=== PATIENT | male | born 1950 | race Caucasian/White ===

== ENCOUNTER 2019-07-31 20:04 | Inpatient (IN) | payer MEDICARE, SELFPAY ==
[2019-07-31] VITALS (7 sets, daily range): BP systolic 141–158; BP diastolic 78–99; PULSE 64–91; RESP 16–24; TEMP 36.2–36.8; O2SAT 94–100; BMI 35.8
--- NOTE | ~2019-07-31 | XR_ITS ---
XR chest 2V 08/06/2019 08:26 Indication: Shortness of breath. CHF. Procedure: AP and lateral views of the chest Comparison: 07/31/2019 Findings: Cardiomegaly. Small pleural effusions. No focal pneumonia, edema or pneumothorax. No acute osseous abnormality. Impression: 1: Small pleural effusions. 2: Cardiomegaly. Reviewed, dictated and finalized at location A. MENT DESIGN SPECIALIST Impression: 1: Small pleural effusions. 2: Cardiomegaly.
--- NOTE | ~2019-07-31 | US_ITS ---
EXAMINATION: US renal BI EXAM DATE: 08/02/2019 08:18 INDICATION: Edema, chronic kidney disease. TECHNIQUE: Multiple grayscale and Doppler images of the kidneys were obtained (by a technologist who performed the scan) and subsequently reviewed. Comparison is made to prior examination from 7. FINDINGS: Significant bilateral renal cortical thinning. Right kidney: There is normal contour and echogenicity. It measures 9.7 x 4.9 x 5.7 centimeters. The re is region of increased echogenicity and shadowing in the lower pole of the right kidney consistent with calcification, nephrolithiasis. There is 1.5 cm cystic region with increased through transmissi on, probably cyst. There is no hydronephrosis. Left kidney: There is normal contour and echogenicity. It measures 9.6 x 5.6 x 6.0 centimeters. The re are no focal renal lesions identified. There is no hydronephrosis. Bladder unremarkable. IMPRESSION: 1. Bilateral renal cortical thinning, atrophy. 2. Right nephrolithiasis. Reviewed, dictated and finalized at location B. PULLER
--- NOTE | ~2019-07-31 | XR_ITS ---
XR chest 2V 07/31/2019 21:08 Indication: Shortness of breath, cough and congestion Procedure: 2 view chest Comparison: 05/19/2017 Findings: Cardiomegaly. Bibasilar airspace disease has improved. Decreased size of small effusions. T here is atherosclerosis of the aorta. Impression: 1: Improving bibasilar airspace disease, compatible with resolving pneumonia. 2: Decreased size of small effusions. Reviewed, dictated and finalized at location A. HING TRADES WORKERS Impression: 1: Improving bibasilar airspace disease, compatible with resolving pneumonia. 2: Decreased size of small effusions.
--- NOTE | 2019-07-31 20:39 | ED.GENADULT ---
HPI - General Adult General Chief complaint: Shortness of Breath/Dyspnea Stated complaint: SOB Time Seen by Provider: 07/31/19 20:26 Source: patient and RN notes reviewed Mode of arrival: ambulatory Limitations: no limitations History of Present Illness HPI narrative: Pt is a 69 y/o male who presents to the ED with c/o BLE edema which began 2 weeks ago. Pt states he is on the Lasix medication which he reports he has been taking as prescribed. Pt even tried taking an increased dosage without much relief of his symptoms. He denies an increase in eating greasy foods or changes in his diet. Pt reports his weight was 170 lbs in May 2019, and currently is 215 lbs. He reports his winder fixer is Dr. Das. Pt also reports a productive cough, dysuria, edema to his scrotum, and SOB, but denies chest pain, chest pressure, nausea, vomiting, dizziness, or ABD pain. He states his SOB is worsened when he is laying down. Pt also has been unable to walk around the house without getting increasingly tired. He also states he has been diagnosed multiple times in the past for a UTI, with his most recent diagnosis being 5 months ago. MD complaint: BLE swelling Onset (ago): week(s) (2 weeks ago) Location: genitals (scrotum) and lower extremity (bilaterally) Radiation: non-radiation Relieving factors: none (has tried his medication without relief) Associated symptoms: cough (productive), shortness of breath and other (dysuria) Related Data Home Medications Medication Instructions Recorded Confirmed Tylenol 650 mg PO Q8H 08/01/19 08/01/19 aspirin [Adult Low Dose Aspirin] 81 mg PO DAILY 08/01/19 08/01/19 finasteride 5 mg PO DAILY 08/01/19 08/01/19 furosemide 40 mg PO BID 08/01/19 08/01/19 glimepiride 1 mg PO DAILY 08/01/19 08/01/19 metoprolol succinate 100 mg PO DAILY 08/01/19 08/01/19 qj-ue-PO-vit [id number] 1 cap PO DAILY 08/01/19 08/01/19 [Daily Multivitamin] potassium chloride 20 meq PO DAILY 08/01/19 08/01/19 saxagliptin [Onglyza] 5 mg PO DAILY 08/01/19 08/01/19 sertraline 50 mg PO DAILY 08/01/19 08/01/19 Allergies Allergy/AdvReac Type Severity Reaction Status Date / Time No Known Allergies Allergy Unverified 05/29/18 16:26 Review of Systems Review of Systems: All systems reviewed & are unremarkable except as noted in HPI and below Cardiovascular: Cardiovascular: Denies chest pain (chest pressure), Reports leg edema (BLE) and Reports other (edema to scrotum) Respiratory: Respiratory: Reports cough (productive) and Reports dyspnea Gastrointestinal: Gastrointestinal: Denies abdominal pain, Denies nausea and Denies vomiting Genitourinary: Genitourinary: Reports dysuria Neurologic: Denies dizziness PMFSH Past Medical History Medical History (Updated 08/01/19 @ 06:31 by Rosalio Mondragon MD) Asthma Cataract CHF (congestive heart failure) Diabetes Hypercholesterolemia Hypertension Kidney stone UTI (urinary tract infection) Family History Family History (Updated 08/01/19 @ 00:09 by Ingris San RN) Father Diabetes mellitus Social History Social History (Updated 07/31/19 @ 20:43 by Magda Douglas) Smoking status: Never smoker Second hand tobacco smoke exposure: No Alcohol intake: never Substance use: never Gender identity (if verbalized by the patient): Male Spiritual care concerns: No Agree to blood products: Yes Exam Narrative: Exam Narrative: GENERAL: Well-appearing, well-nourished, and in no acute distress. HEAD: Normocephalic, atraumatic. ENT: Mucous membranes moist. NECK: Supple. CHEST: Clear to auscultation. No respiratory distress. HEART: Regular rate and rhythm. Normal peripheral pulses. ABDOMEN: Soft, nontender, nondistended. EXTREMITIES: Normal range of motion. 4+ edema. SKIN: Warm, dry, no rash. NEURO: Alert and oriented x3. PSYCH: Normal mood and affect. Course Consultations Consultation #1: Discussed case with hospitalist, Dr. Hsu. Agreed pt for admission. Eduardo
--- NOTE | 2019-07-31 20:57 | ECG_ITS ---
Measurements Intervals [place] Rate: 61 P: 69 [place]: 212 QRS: -35 QRSD: 82 T: 99 QT: 379 QTc: 384 Interpretive Statements SINUS RHYTHM ATRIAL AND VENTRICULAR PREMATURE COMPLEXES ANTEROSEPTAL INFARCT, AGE INDETERMINATE INFERIOR INFARCT, AGE INDETERMINATE BORDERLINE ST-T WAVE ABNORMALITY- LATERAL LEADS ABNORMAL ECG Electronically Signed On 08-01-2019 6:52:20 [employer]ID [employer]ASS R[employer] DOWEL MACHINE OPERATOR by Kennedy Singh D.O.
[2019-07-31 21:41] LABS: Basophils Absolute Auto 0.1 K/mm3 (0.0-0.1); Basophils Percent Auto 0.8 % (0.2-1.2); Eosinophils Absolute Auto 0.7 K/mm3 (0-0.3); Eosinophils Percent Auto 6.1 % (0-4.4); Hematocrit 36.5 % (42.0-52.0); Hemoglobin 11.1 g/dL (14.0-18.0); Immature Granulocyte Absolute 0.06 K/mm3 (0.00-0.031); Immature Granulocyte Percent A 0.6 % (0-0.5); Lymphocytes Absolute Auto 0.57 K/mm3 (0.9-3.2); Lymphocytes Percent Auto 5.3 % (18.3-44.2); Mean Corpuscular HGB Conc 30.4 g/dl (32-36); Mean Corpuscular Volume 88.8 fl (80-100); Mean Platelet Volume 10.5 fl (7.4-10.4); Monocytes Absolute Auto 0.8 K/mm3 (0.1-0.6); Monocytes Percent Auto 7.5 % (2.6-8.5); Neutrophils Absolute Auto 8.6 K/mm3 (1.3-6.7); Neutrophils Percent Auto 79.7 % (45.5-73.1); Platelet Count Result 241 k/mm3 (150-375); Red Blood Count 4.11 M/mm3 (4.6-6.20); Red Cell Distribution Width 19.7 % (11.5-14.5); White Blood Count 10.8 K/mm3 (4.5-10.0)
[2019-07-31 21:51] LABS: INR 1.2; Prothrombin Time 14.8 Seconds (11.1-14.7)
[2019-07-31 21:52] LABS: Partial Thromboplastin Time 36.2 SECONDS (22.3-36.8)
[2019-07-31 21:53] LABS: Blood Urea Nitrogen 50 mg/dL (9-20); Calcium 9.1 mg/dL (8.4-10.2); Carbon Dioxide 21 mmol/L (22-30); Chloride 109 mmol/L (98-107); Estimated Glomerular Filt Rate 35; Glucose 131 mg/dL (75-110); Sodium 141 mmol/L (137-145)
[2019-07-31 22:12] LABS: Troponin I 0.075 ng/mL (0.000-0.034)
[2019-07-31 22:14] LABS: NT Pro B Type Natriuretic Pept > 35000 PG/ML (5-100)
--- NOTE | 2019-07-31 22:24 | PC.NURSE ---
@ 1004 Librado from lab called and stated he had a critical troponin on this pt. This RN informed this pts nurse, Abdirizak.
[2019-07-31] MEDS: FUROSEMIDE INJ 100 MG/10 ML VIAL 80 MG IV PUSH (22:38)
[2019-07-31 23:57] LABS: Add Urine Microscopic? YES; Appearance Urine Cloudy (Clear); Bilirubin Urine Negative (Negative); Blood Urine 1+ (Negative); Color Urine Yellow (Yellow); Glucose Urine UA Negative (Negative); Ketones Urine Negative (Negative); Leukocyte Esterase Ur 2+ LEU/UL (Negative); Mucus Urine Rare /lpf; Nitrate Urine Negative (Negative); Protein Urine 3+ mg/dL (Negative); Specific Grav Ur 1.013 (1.001-1.035); Squamous Epithelial Cell Urine Occasional /hpf (Few); Urobilinogen Urine Negative mg/dL (<2.0); WBC Urine >75 /hpf
[2019-08-01] VITALS (8 sets, daily range): BP systolic 144–165; BP diastolic 79–99; PULSE 62–90; RESP 18–20; TEMP 36.1–36.9; O2SAT 95–100; BMI 35.8
--- NOTE | 2019-08-01 | ECHO_ITS ---
Patient Info Name: Natan Drew Age: 69 years : 1950 Gender: Male Ht: 64 in Wt: 209 lbs BSA: 2.11 m2 HR: 85 bpm BP: 165 / 99 mmHg Heart Rhythm: Sinus Rhythm Technical Quality: Good Exam Date: 08/01/2019 11:45 AM Exam Location: [facility] Pulmonary Patient Status: Inpatient Admit Date: 07/31/2019 Staff Ordering Physician: Priyanka Hsu DO Waterproofer: Simon Sweet RDCS Attending Provider: Priyanka Hus DO Referring Physician: Aracelis CHAND; Exam Type: CA echo doppler color flow Study Info Indications I50.22 - Chronic systolic (congestive) heart failure R60.9 - Edema, unspecified Complete two-dimensional, color flow and Doppler transthoracic echocardiogram is performed. Strain analysis performed. History/Risk Factors CHF w/ worsening edema; BNP >35k, HTN, SOB. Summary 1. The left ventricle is moderately enlarged with mild eccentric left ventricular hypertrophy. There is severe global left ventricular dysfunction present with no focal wall motion abnormalities. The calculated ejection fraction is 27% and visually it is 20-25%. The global longitudinal strain pattern is-7%, severely reduced, again showing severe left ventricular dysfunction. Diastolic dysfunction, grade 2, is present. 2. Right ventricular chamber dimension is moderately enlarged with moderate dysfunction. 3. There is moderate mitral valve regurgitation. PISA was 0.5 cm. 4. Dilated inferior vena cava with <50% collapse upon inspiration consistent with significantly elevated right atrial pressure, 15 mmHg. 5. Normal sinus rhythm with PVCs. 6. Left atrial chamber dimension is severely enlarged. 7. There is mild aortic valve regurgitation. 8. There is moderate to severe tricuspid valve regurgitation. 9. There is trivial pericardial effusion. 10. Severe pulmonary hypertension, estimated pulmonary arterial systolic pressure is 76 mmHg. 11. Normal sinus rhythm. Left Ventricle The left ventricle is moderately enlarged with. The left ventricle is moderately enlarged with mild eccentric left ventricular hypertrophy. There is severe global left ventricular dysfunction present with no focal wall motion abnormalities. The calculated ejection fraction is 27% and visually it is 20-25%. The global longitudinal strain pattern is-7%, severely reduced, again showing severe left ventricular dysfunction. Diastolic dysfunction, grade 2, is present. Left ventricular chamber dimension is moderately enlarged. Left ventricular systolic function is severely reduced, estimated at 20-25%. There is mildly increased left ventricular wall thickness. Left ventricular septal wall motion is normal. The left ventricular diastolic function is grade I diastolic dysfunction. Global longitudinal strain is severely elevated at 7 %. Right Ventricle Right ventricular chamber dimension is moderately enlarged with moderate dysfunction. Right ventricular systolic function is reduced. Left Atria Left atrial chamber dimension is severely enlarged. Right Atria Right atrial chamber dimension is normal. Aortic Valve The aortic valve is trileaflet. There is mild aortic valve sclerosis. There is no aortic valve stenosis. There is mild aortic valve regurgitation. Pulmonic Valve The pulmonic valve is normal. There is no pulmonic valve stenosis. There is no pulmonic regurgitation. Mitral Valve There is moderate mitral valve regurgitation. PISA was 0.5 cm. The mitral valve has normal leaflets. There is no mitral valve priscilla
--- NOTE | 2019-08-01 00:12 | ADMGEN ---
This patient, Natan Drew, was admitted to IMU Room 207-01. Patient/family oriented to hospital policies and general routines including ID bracelet, bed and alarms, visiting hours, pain management, procedures, bathroom and other care routines, personal items, smoking policy, room service/diet, and visiting hours. Valuables list has been completed. Information on how to activate the Rapid Response Team has been discussed. Patient/Family are encouraged to report perceived risks to care and to ask questions if they do not understand what they are told or what they should do.
[2019-08-01 01:34] LABS: Troponin I 0.076 ng/mL (0.000-0.034)
[2019-08-01] MEDS: LIDOCAINE HCL 2% GEL UROJET 10 ML PKG MUCOUS MEM (02:55)
[2019-08-01 03:35] LABS: Blood Urea Nitrogen 48 mg/dL (9-20); Calcium 9.3 mg/dL (8.4-10.2); Carbon Dioxide 21 mmol/L (22-30); Chloride 109 mmol/L (98-107); Estimated CRCL calculation 34 ml/min; Estimated Glomerular Filt Rate 35; Glucose 117 mg/dL (75-110); Sodium 142 mmol/L (137-145)
[2019-08-01 04:00] LABS: Troponin I 0.079 ng/mL (0.000-0.034)
[2019-08-01] MEDS: ASPIRIN 81 MG ENTERIC TABLET PO (10:17)
[2019-08-01] MEDS: METOPROLOL SUCCINATE EXT REL 100 MG TABCR PO (10:22)
[2019-08-01] MEDS: SERTRALINE HCL 50 MG TABLET PO (10:22)
[2019-08-01] MEDS: POTASSIUM CHLORIDE 20 MEQ TABLET.ER PO (10:22)
[2019-08-01] MEDS: FINASTERIDE 5 MG TABLET PO (10:23)
[2019-08-01] MEDS: FUROSEMIDE INJ 100 MG/10 ML VIAL 80 MG IV PUSH ×2 (10:23→21:25)
[2019-08-01] MEDS: ENOXAPARIN 40 MG/0.4 ML SYRINGE SUB-Q (13:22)
--- NOTE | 2019-08-01 14:22 | HP_ITS ---
DATE OF SERVICE: 08/01/2019 TIME: 0600. CHIEF COMPLAINT: Generalized weakness and swelling. HISTORY OF PRESENT ILLNESS: The patient is a 69-year-old male with a past medical history of severe systolic dysfunction with EF of 25%, type 2 diabetes mellitus, prior ureteral strictures with uroplasty and chronic kidney disease, stage 3, who presented to the ER with generalized weakness and dyspnea on exertion. The patient reports that he has been having more dyspnea over the last 2 weeks. However, he has been having more swelling over the last month or so. His dyspnea is worse when he is trying to lay down, but it more depends on the effort it takes him to get into bed and not so much his positioning in bed. He has noticed progressive lower extremity swelling and believes that his weight was around 170 pounds a couple of months ago and he is currently up to 208 pounds. He reports that he usually has chronic lower extremity swelling, but now has swelling in his upper arms, chest and body wall as well as abdomen. He has been taking his Lasix 40 mg b.i.d., but given how much he was swelling, he actually took a dose of 80 mg of Lasix prior to coming to the ER with no improvement in his symptoms. He has also been having increased urinary urgency and feeling as if he has to have a bowel movement every 20 or 30 minutes. He states that he has to urinate every 20 or 30 minutes when he is at home, and this has been like this for a prolonged amount of time, probably more than several months. He has noticed that since he has started having increased swelling in his body, he has been having loose stools. They are nonbloody and brown in color. When he arrived to the intermediate floor, he was complaining that he had to get up and go to the bathroom because he felt like he had to have a bowel movement. Since the patient was only dribbling urine despite having received 80 mg of IV Lasix, a Castellon catheter was inserted given his history of urinary obstruction. The patient's body habitus would have made it almost impossible to do a bladder scan. Subsequently, the patient had 350 out of his bladder. After placement of the Castellon, though the patient's sensation of urge to have a bowel movement and urinary urgency had resolved. He denies any dysuria or hematuria. He reports normal appetite, but does not think he has been eating enough food to gain the weight that he has. He denies any chest pain, pressure, or palpitations. He has not had any nausea or vomiting. The patient was diagnosed with a urinary tract infection in April and received antibiotics at that time. The patient reports that he snores quite significantly, but has never had a sleep study. He reports he wakes up feeling refreshed. The patient has decreased mobility and reports that his hip gives out on him. 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 He has been evaluated for hip replacement surgery at [facility]. He reports that any time he gets close to the top of the list for the surgeon who is going to do his surgery, he ends up with a skin ulceration and they cancel his surgery until his skin wounds heal. REVIEW OF SYSTEMS: Except as documented, all systems were reviewed and are negative. PAST MEDICAL HISTORY: 1. Severe systolic dysfunction with ejection fraction of 25% on echocardiogram from May 2017. The patient is followed by Dr. Das as an outpatient. 2. Chronic kidney disease stage 3 with creatinine at baseline. 3. History of kidney stones. 4. Urinary retention with history of ureteral strictures, uroplasty, and subsequent urinary fistula managed by Dr. Melo in the past. 5. Type 2 diabetes mellitus, on oral hypoglycemic agents. 6. Depression. 7. Hypercholesterolemia. 8. Tonsillectomy and adenoidectomy. SOCIAL HISTOR
--- NOTE | 2019-08-01 15:33 | PM.IMPN ---
Progress Note: A&P Assessment and Plan (1) Congestive heart failure: Qualifiers: Heart failure chronicity: acute on chronic Heart failure type: unspecified Qualified Code(s): I50.9 - Heart failure, unspecified Code(s): I50.9 - Heart failure, unspecified Status: Acute Assessment and Plan: Probable acute on chronic systolic heart failure repeat echo pending. Not on Marbin inhibitors due to chronic renal failure. Blood pressure is adequate so will add low-dose hydralazine with nitrate and continue IV furosemide (2) Chronic renal failure, stage 3 (moderate): Code(s): N18.3 - Chronic kidney disease, stage 3 (moderate) Status: Acute Assessment and Plan: Creatinine appears close to baseline continue to monitor with IV Lasix stable at 1.9 (3) Diabetes: Code(s): E11.9 - Type 2 diabetes mellitus without complications Status: Acute Assessment and Plan: Only on low-dose glimepiride which will hold and monitor and use sliding scale if needed (4) Hypertension: Code(s): I10 - Essential (primary) hypertension Status: Acute Assessment and Plan: Pressure adequate actually toward the higher side so will add the hydralazine and nitrate to the beta-seven (5) DVT prophylaxis: Code(s): Z29.9 - Encounter for prophylactic measures, unspecified Status: Acute Assessment and Plan: Lovenox Subjective Date/time seen: 08/01/19 15:33 Interval history: Date of visit 07/31/2019. 69-year-old white male with known systolic heart failure admitted with increasing edema and some shortness of breath. Admits to taking his medicine regularly and have added increased his diuretic some without relief. Has had some orthopnea but no chest pain Exam Narrative: Exam Narrative: Blood pressure 160/96 pulse is 66 afebrile Pupil equal reactive to light sclera anicteric Lungs some very faint end expiratory wheeze very faint crackle left posterior base CV faint systolic murmur lower left sternal border Abdomen is soft nontender Extremities without edema distal pulses are 1+ Neuro alert no focal deficits Objective Data Vital Signs Vital Signs: Vital Signs - 24 hr 07/31/19 20:18 07/31/19 21:59 07/31/19 22:32 Temperature 36.4 C L 36.8 C Pulse Rate 79 91 Respiratory Rate 22 H 24 H Blood Pressure 147/99 H 149/84 H Pulse Oximetry 97 100 94 07/31/19 23:00 07/31/19 23:40 07/31/19 23:41 Temperature 36.8 C 36.8 C Pulse Rate 82 64 84 Respiratory Rate 22 H 16 22 H Blood Pressure 158/98 H 141/78 H 141/78 H Pulse Oximetry 97 100 100 07/31/19 23:55 08/01/19 02:00 08/01/19 04:00 Temperature 36.2 C L 36.1 C L Pulse Rate 82 82 83 Respiratory Rate 20 20 Blood Pressure 151/95 H 165/92 H Pulse Oximetry 99 98 08/01/19 05:57 08/01/19 08:00 08/01/19 10:22 Temperature 36.6 C Pulse Rate 62 86 84 Respiratory Rate 20 Blood Pressure 165/99 H Pulse Oximetry 97 08/01/19 12:00 Temperature 36.8 C Pulse Rate 90 Respiratory Rate 18 Blood Pressure 152/88 H Pulse Oximetry 96 Intake/Output Intake/Output: Intake & Output 07/29/19 07/30/19 07/31/19 08/01/19 23:59 23:59 23:59 23:59 Intake Total 100 Balance 100 Meds/Results Medications: Active Medications Generic Name Dose Route Start Last Admin Trade Name Freq PRN Reason Stop Dose Admin Acetaminophen 650 mg 07/31/19 23:13 Tylenol Tablet PO Q4H PRN Mild Pain (1-3) or Fever Hydrocodone Bitart/Acetaminophen 1 tab 07/31/19 23:13 [place] 5-325 Mg PO Q4H PRN Pain Rated 4-6 Aspirin 81 mg 08/01/19 09:00 08/01/19 10:17 Aspirin Ec PO 81 mg DAILY ANNITA Administration Enoxaparin Sodium 40 mg 08/01/19 09:00 08/01/19 13:22 Lovenox SUB-Q 40 mg DAILY ANNITA Administration Finasteride 5 mg 08/01/19 09:00 08/01/19 10:23 Proscar PO 5 mg DAILY ANNITA Administration Furosemide 80 mg 08/01/19 09:00 08/01/19 10:23 Lasix Inj
[2019-08-01] MEDS: hydrALAZINE 12.5 MG TABLET PO ×2 (17:24→21:24)
--- NOTE | 2019-08-01 17:56 | PC.NURSE ---
Patient received from at 1730.
[2019-08-01 23:43] LABS: Creatinine Urine 62.8 mg/dL
[2019-08-02 00:04] LABS: Total Protein Urine Random 343 mg/dL
[2019-08-02 06:00] VITALS: BP 150/66; PULSE 41; RESP 16; TEMP 36.6; O2SAT 97
[2019-08-02 06:31] LABS: Alanine Aminotransferase 15 U/L (4-50); Albumin Level 2.9 g/dL (3.5-5.1); Alkaline Phosphatase 106 U/L (38-126); Aspartate Amino Transferase 27 U/L (17-59); Bilirubin,Total 0.8 mg/dL (0.2-1.3); Blood Urea Nitrogen 46 mg/dL (9-20); Carbon Dioxide 20 mmol/L (22-30); Chloride 107 mmol/L (98-107); Estimated CRCL calculation 32 ml/min; Estimated Glomerular Filt Rate 33; Glucose 114 mg/dL (75-110); Magnesium 2.1 mg/dL (1.6-2.3); Phosphorus 3.9 mg/dL (2.5-4.5); Potassium 4.5 mmol/L (3.4-5.0); Sodium 138 mmol/L (137-145)
[2019-08-02 08:00] VITALS: PULSE 41; RESP 16; O2SAT 97
[2019-08-02] MEDS: ASPIRIN 81 MG ENTERIC TABLET PO (08:35)
[2019-08-02] MEDS: ENOXAPARIN 40 MG/0.4 ML SYRINGE SUB-Q (08:35)
[2019-08-02] MEDS: FINASTERIDE 5 MG TABLET PO (08:36)
[2019-08-02] MEDS: FUROSEMIDE INJ 100 MG/10 ML VIAL 80 MG IV PUSH ×2 (08:36→20:31)
[2019-08-02] MEDS: hydrALAZINE 12.5 MG TABLET PO ×4 (08:37→20:29)
[2019-08-02] MEDS: METOPROLOL SUCCINATE EXT REL 100 MG TABCR PO (08:37)
[2019-08-02] MEDS: ISOSORBIDE MONONITRATE 15 MG TAB.ER.24H PO (08:37)
[2019-08-02] MEDS: SERTRALINE HCL 50 MG TABLET PO (08:38)
[2019-08-02] MEDS: POTASSIUM CHLORIDE 20 MEQ TABLET.ER PO (08:38)
--- NOTE | 2019-08-02 11:50 | WPDCN ---
Assessment and Plan Assessment and plan (1) Acute on chronic systolic heart failure: Code(s): I50.23 - Acute on chronic systolic (congestive) heart failure Status: Acute Assessment and Plan: Patient presents with slowly accumulating 50-60 lb weight gain and acute on chronic systolic heart failure. He states he has been compliant with his medications; there is room to move with his diuretics. Also with his Education. In the past I did not increase his metoprolol because of bradycardia in did not add an ARB, Entresto or spironolactone because of is chronic kidney disease. Nitrates and hydralazine is a good option. Plan: Hydralazine and Isordil have been started Continue IV diuretics If renal fxn can not tolerate diuresis, then transfer to IMU for dobutamine to hopefully improve cardiac output and prevent worsening renal insufficiency Daily BMP Dietitian for low-salt diet and Education regarding cardiomyopathy and CHF Spironolactone if Dr. Mcconnell feels his renal function would tolerate this. Will re-approache the thought of ICD implant at a later date. (2) Cardiomyopathy: Code(s): I42.9 - Cardiomyopathy, unspecified Status: Acute Assessment and Plan: EF about 25% since 20 17 (3) Chronic renal failure, stage 3 (moderate): Code(s): N18.3 - Chronic kidney disease, stage 3 (moderate) Status: Acute Assessment and Plan: Relatively stable (4) Hypertension: Code(s): I10 - Essential (primary) hypertension Status: Acute Assessment and Plan: Blood pressure still a bit high (5) PVCs (premature ventricular contractions): Code(s): I49.3 - Ventricular premature depolarization Status: Acute Assessment and Plan: Asymptomatic PVCs (6) Knowledge deficit: Status: Acute Assessment and Plan: Reviewed CHF, cardiomyopathy, and courage the patient to call sooner if there is weight gain or swelling. (7) Pulmonary hypertension: Code(s): I27.20 - Pulmonary hypertension, unspecified Status: Acute Assessment and Plan: Patient has severe pulmonary hypertension and would not be surprised if he also has sleep apnea. Will evaluate with an apnea link. HPI Data of Consult Date/Time: 08/02/19 11:50 Requesting Physician: Priyanka Hsu DO Primary Care Provider: Roberto Carlos Hines MD Consult Narrative Narrative: Date of service: 08/02/2019 Natan Drew is a 69 year old male, referred by Dr. Hsu for advice and opinion regarding his acute CHF and cardiomyopathy, in consultation. Mr. Rizzo has a history of cardiomyopathy and CHF as well as frequent PVCs. I see him in the office with the last office visit being April 2019. Since then the patient has had progressive SOB, and orthopnea with progressive swelling and gained 60 lb. He did not call us to report this change. He also has become progressively more short of breath. He feels that his home Lasix has not been working very well with decreased urine output. He states he has been compliant with his medications, follows a no added salt diet (but likes to obtain take out and has frozen meals at times). The patient was initially diagnosed with heart failure in 2016, at which time he was admitted with CHF, and EF of 25%. He was found of chronic kidney disease. He had a heart catheterization 10 15 years ago but none recently (because of his chronic kidney disease). A Lexiscan was negative. We had discussed his cardiomyopathy and treatment several times and on his last 2 office visits in October and April 2019 we discussed primary prevention of sudden cardiac with implantation of a defibrillator. The patient has not gotten back to us on that. Had her last office visit in April his weight was 177 lb and he had mild to moderate lower extremity edema. He cancelled his next follow-up visit. History of hypertension, patient reports diabetes as well. Cardiac testi
--- NOTE | 2019-08-02 13:25 | PM.IMPN ---
Progress Note: A&P Assessment and Plan (1) Congestive heart failure: Qualifiers: Heart failure chronicity: acute on chronic Heart failure type: unspecified Qualified Code(s): I50.9 - Heart failure, unspecified Code(s): I50.9 - Heart failure, unspecified Status: Acute Assessment and Plan: acute on chronic systolic heart failure repeat echo EF 25% with pul HTN and diastolic dysfunction.. Not on Marbin inhibitors due to chronic renal failure. Blood pressure is adequate so added low-dose hydralazine with nitrate and continue IV furosemide per cardiology probable dobutamine if does not start diuresing more. Could add metolazone too (2) Chronic renal failure, stage 3 (moderate): Code(s): N18.3 - Chronic kidney disease, stage 3 (moderate) Status: Acute Assessment and Plan: Creatinine appears close to baseline continue to monitor with IV Lasix stable at 2.0 today (3) Diabetes: Code(s): E11.9 - Type 2 diabetes mellitus without complications Status: Acute Assessment and Plan: Only on low-dose glimepiride which will hold and monitor and use sliding scale if needed BS good (4) Hypertension: Code(s): I10 - Essential (primary) hypertension Status: Acute Assessment and Plan: Pressure adequate and should be able to titrate further hydralazine and nitrate to the beta-seven (5) DVT prophylaxis: Code(s): Z29.9 - Encounter for prophylactic measures, unspecified Status: Acute Assessment and Plan: Lovenox Subjective Date/time seen: 08/02/19 13:25 Interval history: Date of visit 08/02/2019. 69-year-old white male with known systolic heart failure admitted with increasing edema and some shortness of breath. Admits to taking his medicine regularly and have added increased his diuretic some without relief. Has had some orthopnea but no chest pain, has diuresed some since admission and complains of head congestion now Exam Narrative: Exam Narrative: Blood pressure 150/66 pulse is 56 afebrile Pupil equal reactive to light sclera anicteric Lungs some very faint crackle left posterior base CV faint systolic murmur lower left sternal border Abdomen is soft nontender Extremities 2+ edema distal pulses are 1+ Neuro alert no focal deficits Objective Data Vital Signs Vital Signs: Vital Signs - 24 hr 08/01/19 17:35 08/01/19 22:00 08/02/19 06:00 Temperature 36.9 C 36.6 C 36.6 C Pulse Rate 83 80 41 L Respiratory Rate 18 18 16 Blood Pressure 161/85 H 144/79 H 150/66 H Pulse Oximetry 100 95 97 08/02/19 08:00 Temperature Pulse Rate 41 L Respiratory Rate 16 Blood Pressure Pulse Oximetry 97 Intake/Output Intake/Output: Intake & Output 07/30/19 07/31/19 08/01/19 08/02/19 23:59 23:59 23:59 23:59 Intake Total 100 250 Output Total 550 1050 Balance -450 -800 Meds/Results Medications: Active Medications Generic Name Dose Route Start Last Admin Trade Name Freq PRN Reason Stop Dose Admin Acetaminophen 650 mg 07/31/19 23:13 Tylenol Tablet PO Q4H PRN Mild Pain (1-3) or Fever Hydrocodone Bitart/Acetaminophen 1 tab 07/31/19 23:13 [place] 5-325 Mg PO Q4H PRN Pain Rated 4-6 Aspirin 81 mg 08/01/19 09:00 08/02/19 08:35 Aspirin Ec PO 81 mg DAILY ANNITA Administration Enoxaparin Sodium 40 mg 08/01/19 09:00 08/02/19 08:35 Lovenox SUB-Q 40 mg DAILY ANNITA Administration Finasteride 5 mg 08/01/19 09:00 08/02/19 08:36 Proscar PO 5 mg DAILY ANNITA Administration Furosemide 80 mg 08/01/19 09:00 08/02/19 08:36 Lasix Inj IV PUSH 80 mg Q12HR ANNITA Administration Hydralazine HCl 12.5 mg 08/01/19 17:00 08/02/19 08:37 Apresoline Tablet PO 12.5 mg QID ANNITA Administration Isosorbide Mononitrate 15 mg 08/02/19 09:00 08/02/19 08:37 Imdur PO 15 mg QAM ANNITA Administration Metoprolol Succinate 100 mg 08/01/19 09:00 08/02/19 08:37 Toprol Xl PO
[2019-08-02 14:00] VITALS: BP 141/77; PULSE 66; RESP 16; TEMP 37.6; O2SAT 97
--- NOTE | 2019-08-02 16:45 | PCPTNOTE ---
The patient treatment was not able to be completed today. Will plan to continue treatment per plan of care.
--- NOTE | 2019-08-02 17:14 | PM.CNNEP ---
Assessment and Plan Assessment and plan (1) Chronic kidney disease, stage 3: Code(s): N18.3 - Chronic kidney disease, stage 3 (moderate) Status: Acute (2) Nephrotic range proteinuria: Code(s): R80.9 - Proteinuria, unspecified Status: Acute (3) Acute on chronic systolic heart failure: Code(s): I50.23 - Acute on chronic systolic (congestive) heart failure Status: Acute (4) Hypertension: Code(s): I10 - Essential (primary) hypertension Status: Acute Assessment and Plan: . Additional Plan Natan has chronic kidney disease and his kidney function appears to be at baseline by his most recent labs. Unfortunately, his major issue/problem at this time is severe volume overload and anasarca as evidence by his physical exam. His swelling edema is somewhat of a chronic issue at baseline likely secondary to his known cardiomyopathy and I suspect his nephrotic range proteinuria is also a contributing factor to his swelling as well. However, the treatment for both of these conditions it is aggressive diuresis that at that unfortunately, diuretics alone have not achieved a significant response in terms of improving his urine output. Considerations in terms of therapy try to promote further diuretics include IV albumin changed by IV diuretics versus what was brought up by Cardiology in terms of using IV dobutamine to improve his cardiac output and there by promoting further diuresis with the use of IV diuretics. Depending on that trend of his urine output and next 24 hours, I suspect we will probably have to do something more aggressive in terms of what was mentioned above to optimize his volume status in general. If IV dobutamine is instituted, this may actually improve his overall renal function is well along with promoting diuresis. I will continue to follow patient with you while he remains hospitalized and make further recommendations during his hospital course. Thank you for allowing to participate in the care of this patient. History of Present Illness Reason for Consult Consult date: 08/02/19 Reason for consult: chronic renal failure and Other (proteinuria) Chief Complaint Chief complaint: chf exacerbation History of Present Illness Narrative: The patient is a very pleasnt 69-year-old male with an extensive medical history as outlined below who presented to [facility] ER with complaints of generalized weakness, dyspnea on exertion, and worsening edema/swelling. The patient has noted progressive dyspnea over the last 2 weeks associated with more edema/fluid retention. He tells me the his usual weight is around 170 pounds and is now upt 208 pounds. He admits that he has chronic lower extremity swelling but states now he has swelling everywhere - arms, chest, abdomen...etc. He has been taking his diuretics as prescribed and denies any dietary indiscretion. In an attempt to decrease his edema, he attempted to take a higher dose of diuretics but this did not seem to help at all. Workup and evaluation in the emergency room demonstrated the patient to be hemodynamically stable with routine blood tests consistent with his known history of chronic kidney disease. His exam was noteworthy for significant/severe anasarca and overt volume overload. He was started on IV diuretic therapy and subsequently admitted to the hospital for further evaluation and therapy. Renal consultation was requested due to his known history of chronic kidney disease as well as a concern that nephrotic range proteinuria/nephrotic syndrome was playing a role with regard to his volume status. The patient normally follows with Dr. Michael Mcconnell in the office for ongoing management of his chronic kidney disease. Based on his outpatient evaluation, his kidney disease is due to his hypertension, diabetes as well as chronic prerenal azotemia due to his known cardiomyopathy complicated by the need for chronic diuretic
[2019-08-02] MEDS: ACETAMINOPHEN 325 MG TABLET 650 MG PO (18:49)
[2019-08-02 22:00] VITALS: BP 152/77; PULSE 80; RESP 18; TEMP 37.3; O2SAT 95
[2019-08-03] VITALS (13 sets, daily range): BP systolic 129–163; BP diastolic 60–91; PULSE 74–87; RESP 20–24; TEMP 36–37.3; O2SAT 95–97
[2019-08-03 06:14] LABS: Blood Urea Nitrogen 48 mg/dL (9-20); Calcium 8.9 mg/dL (8.4-10.2); Carbon Dioxide 20 mmol/L (22-30); Chloride 108 mmol/L (98-107); Estimated CRCL calculation 31 ml/min; Estimated Glomerular Filt Rate 31; Glucose 125 mg/dL (75-110); Phosphorus 3.8 mg/dL (2.5-4.5); Potassium 4.5 mmol/L (3.4-5.0); Sodium 139 mmol/L (137-145)
[2019-08-03] MEDS: ENOXAPARIN 40 MG/0.4 ML SYRINGE SUB-Q (09:03)
[2019-08-03] MEDS: SERTRALINE HCL 50 MG TABLET PO (09:04)
[2019-08-03] MEDS: POTASSIUM CHLORIDE 20 MEQ TABLET.ER PO (09:04)
[2019-08-03] MEDS: FINASTERIDE 5 MG TABLET PO (09:04)
[2019-08-03] MEDS: ISOSORBIDE MONONITRATE 15 MG TAB.ER.24H PO ×2 (09:04→13:50)
[2019-08-03] MEDS: hydrALAZINE HCL 25 MG TABLET PO ×4 (09:04→22:04)
[2019-08-03] MEDS: ASPIRIN 81 MG ENTERIC TABLET PO (09:04)
[2019-08-03] MEDS: METOPROLOL SUCCINATE EXT REL 100 MG TABCR PO (09:04)
--- NOTE | 2019-08-03 09:41 | PM.PNCARD ---
Progress Note: A&P Assessment and Plan (1) Acute on chronic systolic heart failure: Code(s): I50.23 - Acute on chronic systolic (congestive) heart failure Status: Acute Assessment and Plan: Has anasarca secondary to CHF and, to some degree, nephrotic syndrome Poor response to IV diuretics Discussed with Dr. Aguero. Will transfer to IMU and start dobutamine starting at 2.5 mics. Increase to 5 mics per kilos per hour if insufficient response and no significant arrhythmias.. BP on the high side. Increase hydralazine up to 25 mg QID today and isosorbide up to 30 mg qd and continue to titrate. (2) Cardiomyopathy: Code(s): I42.9 - Cardiomyopathy, unspecified Status: Acute Assessment and Plan: Nonischemic cardiomyopathy, EF 25% (3) Hypertension: Code(s): I10 - Essential (primary) hypertension Status: Acute Assessment and Plan: Running a bit high today (4) Chronic kidney disease, stage 3: Code(s): N18.3 - Chronic kidney disease, stage 3 (moderate) Status: Acute Assessment and Plan: Creatinine up slightly to 2.1. Dr. Tate notes nephrotic range proteinuria. (5) PVCs (premature ventricular contractions): Code(s): I49.3 - Ventricular premature depolarization Status: Acute Assessment and Plan: Cont Tele. Time Spent With Patient Time with patient: 15 - 25 minutes Subjective Date/time seen: 08/03/19 Follow-up for acute on chronic systolic CHF Date of service: 08/03/2019 Patient started on IV Lasix 80 mg b.i.d. with a very unimpressive diuresis. No shortness of breath at rest. Ambulated to bathroom with physical therapy without significant shortness of breath. Still with anasarca. Review of Systems Constitutional: Constitutional: Denies difficulty sleeping ENT: Denies epistaxis Cardiovascular: Cardiovascular: Denies chest pain, Reports pedal edema, Reports leg edema, Denies lightheadedness and Denies palpitations Respiratory: Respiratory: Denies dyspnea, Reports dyspnea on exertion and Denies wheezing Gastrointestinal: Gastrointestinal: Denies abdominal pain and Denies hematemesis Genitourinary: Genitourinary: Denies hematuria Musculoskeletal: Musculoskeletal: Denies back pain Integumentary/Breasts: Skin/Breast: Denies rash Neurologic: Denies confusion Psychiatric: Psychiatric: Denies confusion Exam Narrative: Exam Narrative: Pleasant male lying in bed comfortably, no distress. Still has severe edema of the dependent aspects of his body from his axilla to his feet and also some edema of his arms left greater than right.. Edema of the panniculus. Const: General: comfortable and no acute distress HENMT: Mouth: Yes moist mucous membranes Eyes: EOM: EOMs intact bilaterally Neck: Neck: supple Resp: Effort & Inspection: normal respiratory effort Auscultation: diminished lung sounds (Diminished breath sounds, scattered rales in the bases) Cardio: Rate: regular rate Heart sounds: no murmurs GI: Auscultation: normal bowel sounds (Soft and nontender) Skin: General skin exam: no rashes or lesions noted Neuro: Speech: normal speech Extrem: Right lower extremity: edema (Severe lower extremity edema) Left lower extremity: edema (Severe lower extremity edema) Psych: Mental Status: mental status grossly normal Affect: normal affect Objective Data Vital Signs Vital Signs: Vital Signs - 24 hr 08/02/19 14:00 08/02/19 22:00 08/03/19 05:58 Temperature 37.6 C 37.3 C 37.3 C Pulse Rate 66 80 78 Respiratory Rate 16 18 20 Blood Pressure 141/77 H 152/77 H 153/91 H Pulse Oximetry 97 95 97 08/03/19 09:04 Temperature Pulse Rate 74 Respiratory Rate Blood Pressure Pulse Oximetry Intake/Output Intake/Output: Intake & Output 07/31/19 08/01/19
[2019-08-03] MEDS: FUROSEMIDE INJ 100 MG/10 ML VIAL 80 MG IV PUSH ×2 (10:02→22:08)
--- NOTE | 2019-08-03 10:24 | PCOTNOTE ---
Attempted to see patient this am, however patient getting ready to transfer to IMU. Pt's belongings are packed and ready to be moved.
[2019-08-03] MEDS: DOBUTamine 250 MG/D5W 250 ML 250 MG/250 ML BAG 14.2 MG IV CONT (11:50)
--- NOTE | 2019-08-03 15:51 | PM.IMPN ---
Progress Note: A&P Assessment and Plan (1) Congestive heart failure: Qualifiers: Heart failure chronicity: acute on chronic Heart failure type: unspecified Qualified Code(s): I50.9 - Heart failure, unspecified Code(s): I50.9 - Heart failure, unspecified Status: Acute Assessment and Plan: acute on chronic systolic heart failure repeat echo EF 25% with pul HTN and diastolic dysfunction.. Not on Marbin inhibitors due to chronic renal failure. Blood pressure is adequate so added low-dose hydralazine with nitrate and continue IV furosemide per cardiology will start dobutamine today to try to increase diuresis. Could add metolazone too (2) Chronic renal failure, stage 3 (moderate): Code(s): N18.3 - Chronic kidney disease, stage 3 (moderate) Status: Acute Assessment and Plan: Creatinine appears close to baseline continue to monitor with IV Lasix stable at 2.1 today (3) Diabetes: Code(s): E11.9 - Type 2 diabetes mellitus without complications Status: Acute Assessment and Plan: Only on low-dose glimepiride which will hold and monitor and use sliding scale if needed BS good (4) Hypertension: Code(s): I10 - Essential (primary) hypertension Status: Acute Assessment and Plan: Pressure adequate and will titrate hydralazine to 25mg q6 with nitrate and the beta-seven (5) DVT prophylaxis: Code(s): Z29.9 - Encounter for prophylactic measures, unspecified Status: Acute Assessment and Plan: Lovenox Subjective Date/time seen: 08/03/19 15:51 Interval history: Date of visit 08/03/2019. 69-year-old white male with known systolic heart failure admitted with increasing edema and some shortness of breath. Admits to taking his medicine regularly and have added increased his diuretic some without relief. Has had some orthopnea but no chest pain, has diuresed some since admission but no excessive Exam Narrative: Exam Narrative: Blood pressure 144/90 pulse is 76 afebrile Pupil equal reactive to light sclera anicteric Lungs still some very faint crackle left posterior base CV faint systolic murmur lower left sternal border Abdomen is soft nontender Extremities 2+ edema still, distal pulses are 1+ Neuro alert no focal deficits Objective Data Vital Signs Vital Signs: Vital Signs - 24 hr 08/02/19 22:00 08/03/19 05:58 08/03/19 09:04 Temperature 37.3 C 37.3 C Pulse Rate 80 78 74 Respiratory Rate 18 20 Blood Pressure 152/77 H 153/91 H Pulse Oximetry 95 97 08/03/19 11:08 08/03/19 11:11 08/03/19 12:00 Temperature 36.6 C Pulse Rate 82 79 80 Respiratory Rate 20 Blood Pressure 144/91 H Pulse Oximetry 97 08/03/19 12:30 08/03/19 14:00 Temperature 36.4 C Pulse Rate 82 82 Respiratory Rate 22 H Blood Pressure 163/77 H Pulse Oximetry 97 Intake/Output Intake/Output: Intake & Output 07/31/19 08/01/19 08/02/19 08/03/19 23:59 23:59 23:59 23:59 Intake Total 100 1350 600 Output Total 550 1450 750 Balance -450 -100 -150 Meds/Results Medications: Active Medications Generic Name Dose Route Start Last Admin Trade Name Freq PRN Reason Stop Dose Admin Acetaminophen 650 mg 07/31/19 23:13 08/02/19 18:49 Tylenol Tablet PO 650 mg Q4H PRN Administration Mild Pain (1-3) or Fever Hydrocodone Bitart/Acetaminophen 1 tab 07/31/19 23:13 [place] 5-325 Mg PO Q4H PRN Pain Rated 4-6 Aspirin 81 mg 08/01/19 09:00 08/03/19 09:04 Aspirin Ec PO 81 mg DAILY ANNITA Administration Enoxaparin Sodium 40 mg 08/01/19 09:00 08/03/19 09:03 Lovenox SUB-Q 40 mg DAILY ANNITA Administration Finasteride 5 mg 08/01/19 09:00 08/03/19 09:04 Proscar PO 5 mg DAILY ANNITA Administration Furosemide 80 mg 08/01/19 09:00 08/03/19 10:02 Lasix Inj IV PUSH 80 mg Q12HR ANNITA Administration Hydralazine HCl 25 mg 08/03/19 09:00 08/03/19 13:50 Apresoline Tablet PO 25 mg
--- NOTE | 2019-08-03 17:02 | PM.PNNEP ---
Progress Note: A&P Assessment and Plan (1) Chronic kidney disease, stage 3: Code(s): N18.3 - Chronic kidney disease, stage 3 (moderate) Status: Chronic Assessment and Plan: baseline creatinine by office records runs ~ 2.0 - 2.5mg/dl due to hypertension, diabetes, and a component of cardiorenal syndrome (chronic pre-renal azotemia worsened by need for chronic diuretic therapy) suspect his lower creatinine on admission was a dilutional value given his anasarca (2) Nephrotic range proteinuria: Code(s): R80.9 - Proteinuria, unspecified Status: Chronic Assessment and Plan: long standing issue from review of outpatient records undoubtedly contributing to his volume status as well (3) Anasarca: Code(s): R60.1 - Generalized edema Status: Acute Assessment and Plan: significant deterioration noted likely a manifestation of his cardiomyopathy/decompensated heart failure + nephrotic syndrome follow I/Os, daily weights, and respiratory status with current interventions (4) Acute on chronic systolic heart failure: Code(s): I50.23 - Acute on chronic systolic (congestive) heart failure Status: Acute Assessment and Plan: Cardiology following initiated on dobutamine gtt continue diuretics follow volume status (5) Hypertension: Code(s): I10 - Essential (primary) hypertension Status: Acute Assessment and Plan: running a bit high at this time hydralazine added follow hemodynamics Will continue to follow. Subjective Date/time seen: 08/03/19 17:02 Transferred to IMU for initiation of dobutamine drip given poor response to high dose IV diuretics; still with significant swelling/edema at this time; no acute distress noted. Exam Narrative: Exam Narrative: General: WD/WN male in NAD Heart: normal S1 and S2; no rub Lungs: decreased with bibasilar crackles noted Abdomen: soft, nontender, nondistended, positive bowel sounds Extremities: no cyanosis or clubbing; 3+ edema Skin: warm and dry Objective Data Vital Signs Vital Signs: Vital Signs Temp Pulse Resp BP Pulse Ox 08/03/19 14:00 82 08/03/19 12:30 36.4 C 82 22 H 163/77 H 97 08/03/19 12:00 80 08/03/19 11:11 36.6 C 79 20 144/91 H 97 08/03/19 11:08 82 08/03/19 09:04 74 01/30/20 05:58 37.3 C 78 20 153/91 H 97 08/02/19 22:00 37.3 C 80 18 152/77 H 95 Intake/Output Intake/Output: Intake & Output 07/31/19 08/01/19 08/02/19 08/03/19 23:59 23:59 23:59 23:59 Intake Total 100 1350 600 Output Total 550 1450 750 Balance -450 -100 -150 Meds/Results Medications: Active Medications Generic Name Dose Route Start Last Admin Trade Name Freq PRN Reason Stop Dose Admin Acetaminophen 650 mg 07/31/19 23:13 08/02/19 18:49 Tylenol Tablet PO 650 mg Q4H PRN Administration Mild Pain (1-3) or Fever Hydrocodone Bitart/Acetaminophen 1 tab 07/31/19 23:13 [place] 5-325 Mg PO Q4H PRN Pain Rated 4-6 Aspirin 81 mg 08/01/19 09:00 08/03/19 09:04 Aspirin Ec PO 81 mg DAILY ANNITA Administration Enoxaparin Sodium 40 mg 08/01/19 09:00 08/03/19 09:03 Lovenox SUB-Q 40 mg DAILY ANNITA Administration Finasteride 5 mg 08/01/19 09:00 08/03/19 09:04 Proscar PO 5 mg DAILY ANNITA Administration Furosemide 80 mg 08/01/19 09:00 08/03/19 10:02 Lasix Inj IV PUSH 80 mg Q12HR ANNITA Administration Hydralazine HCl 25 mg 08/03/19 09:00 08/03/19 13:50 Apresoline Tablet PO 25 mg QID ANNITA Administration Dobutamine HCl/Dextrose 250 mg in 250 mls @ 14.175 mls/hr 08/03/19 09:40 08/03/19 11:50 Dobutamine 250 Mg/D5w 250 Ml IV CONT 2.5 mcg/kg/min .[id number] ANNITA 14.2 mls/hr Administration 2.5 MCG/KG/MIN Isosorbide Mononitrate 30 mg 08/04/19 09:00 Imdur PO QAM ANNITA Metoprolol Succinate 100 mg 08/01/19 09:00 08/03/19 09:04 Toprol Xl PO 100 m
[2019-08-03] MEDS: ACETAMINOPHEN 325 MG TABLET 650 MG PO (23:51)
[2019-08-03] MEDS: SALINE 0.65% NAS SOLN 44 ML BTL 2 SPRAY NASAL (23:52)
[2019-08-04] VITALS (18 sets, daily range): BP systolic 136–160; BP diastolic 67–97; PULSE 70–90; RESP 18–24; TEMP 36.1–36.8; O2SAT 95–98
[2019-08-04 04:43] LABS: Basophils Absolute Auto 0.1 K/mm3 (0.0-0.1); Basophils Percent Auto 0.4 % (0.2-1.2); Eosinophils Absolute Auto 0.5 K/mm3 (0-0.3); Eosinophils Percent Auto 4.4 % (0-4.4); Hematocrit 31.2 % (42.0-52.0); Immature Granulocyte Absolute 0.07 K/mm3 (0.00-0.031); Immature Granulocyte Percent A 0.6 % (0-0.5); Lymphocytes Absolute Auto 0.39 K/mm3 (0.9-3.2); Lymphocytes Percent Auto 3.2 % (18.3-44.2); Mean Corpuscular HGB Conc 32.1 g/dl (32-36); Mean Corpuscular Hemoglobin 27.9 pg (26-34); Mean Corpuscular Volume 86.9 fl (80-100); Mean Platelet Volume 10.1 fl (7.4-10.4); Monocytes Absolute Auto 0.8 K/mm3 (0.1-0.6); Monocytes Percent Auto 6.7 % (2.6-8.5); Neutrophils Absolute Auto 10.3 K/mm3 (1.3-6.7); Neutrophils Percent Auto 84.7 % (45.5-73.1); Platelet Count Result 206 k/mm3 (150-375); Red Blood Count 3.59 M/mm3 (4.6-6.20); Red Cell Distribution Width 18.7 % (11.5-14.5); White Blood Count 12.1 K/mm3 (4.5-10.0)
[2019-08-04 05:04] LABS: Albumin Level 2.9 g/dL (3.5-5.1); Blood Urea Nitrogen 51 mg/dL (9-20); Calcium 8.9 mg/dL (8.4-10.2); Carbon Dioxide 22 mmol/L (22-30); Chloride 107 mmol/L (98-107); Estimated CRCL calculation 34 ml/min; Estimated Glomerular Filt Rate 35; Glucose 122 mg/dL (75-110); Phosphorus 3.7 mg/dL (2.5-4.5); Potassium 4.3 mmol/L (3.4-5.0); Sodium 139 mmol/L (137-145)
[2019-08-04] MEDS: DOBUTamine 250 MG/D5W 250 ML 250 MG/250 ML BAG 14.2 MG IV CONT (05:54)
[2019-08-04] MEDS: SALINE 0.65% NAS SOLN 44 ML BTL 2 SPRAY NASAL ×4 (06:12→21:17)
[2019-08-04] MEDS: SERTRALINE HCL 50 MG TABLET PO (08:12)
[2019-08-04] MEDS: ISOSORBIDE MONONITRATE 30 MG TAB.ER.24H PO (08:12)
[2019-08-04] MEDS: ENOXAPARIN 40 MG/0.4 ML SYRINGE SUB-Q (08:12)
[2019-08-04] MEDS: ASPIRIN 81 MG ENTERIC TABLET PO (08:12)
[2019-08-04] MEDS: FINASTERIDE 5 MG TABLET PO (08:13)
[2019-08-04] MEDS: hydrALAZINE HCL 25 MG TABLET PO ×4 (08:13→21:13)
[2019-08-04] MEDS: METOPROLOL SUCCINATE EXT REL 100 MG TABCR PO (08:13)
[2019-08-04] MEDS: FUROSEMIDE INJ 100 MG/10 ML VIAL 80 MG IV PUSH ×2 (08:13→21:12)
[2019-08-04] MEDS: POTASSIUM CHLORIDE 20 MEQ TABLET.ER PO (08:14)
[2019-08-04] MEDS: metOLazone 2.5 MG TABLET PO (12:19)
--- NOTE | 2019-08-04 13:31 | PM.PNNEP ---
Progress Note: A&P Assessment and Plan (1) Chronic kidney disease, stage 3: Code(s): N18.3 - Chronic kidney disease, stage 3 (moderate) Status: Chronic Assessment and Plan: baseline creatinine (from review of office records) runs ~ 2.0 - 2.5mg/dl due to hypertension, diabetes, and a component of cardiorenal syndrome (chronic pre-renal azotemia worsened by need for chronic diuretic therapy) suspect his lower creatinine on admission was a dilutional value given his anasarca (2) Nephrotic range proteinuria: Code(s): R80.9 - Proteinuria, unspecified Status: Chronic Assessment and Plan: long standing issue from review of outpatient records (has fluctuated ~ 5 - 7 grams) undoubtedly contributing to his volume status as well (3) Anasarca: Code(s): R60.1 - Generalized edema Status: Acute Assessment and Plan: significant deterioration noted likely a manifestation of his cardiomyopathy/decompensated heart failure + nephrotic syndrome follow I/Os, daily weights, and respiratory status with current interventions (4) Acute on chronic systolic heart failure: Code(s): I50.23 - Acute on chronic systolic (congestive) heart failure Status: Acute Assessment and Plan: Cardiology following initiated on dobutamine gtt continue diuretics -- may need to increase dose versus add metolazone follow volume status (5) Hypertension: Code(s): I10 - Essential (primary) hypertension Status: Acute Assessment and Plan: running a bit high at this time hydralazine added follow hemodynamics Will continue to follow. Subjective Date/time seen: 08/04/19 13:31 Seems to be doing well -- since transfer to IMU and initiation of dobutamine gtt, he has noted some decrease in swelling/edema in upper extremities; no apparent distress voiced at this time; no distress noted. Exam Narrative: Exam Narrative: General: WD/WN male in NAD Heart: normal S1 and S2; no rub Lungs: decreased with bibasilar crackles noted Abdomen: soft, nontender, nondistended, positive bowel sounds Extremities: no cyanosis or clubbing; 3+ edema Skin: warm and intact Objective Data Vital Signs Vital Signs: Vital Signs Temp Pulse Resp BP Pulse Ox 08/04/19 12:00 90 08/04/19 10:00 70 08/04/19 08:24 36.8 C 88 24 H 160/97 H 95 01/31/20 08:13 85 08/04/19 08:00 88 24 H 95 08/04/19 06:00 85 08/04/19 04:00 36.6 C 84 20 141/69 H 97 08/04/19 02:00 84 08/04/19 00:00 83 22 H 95 08/03/19 23:54 36.3 C L 83 22 H 140/77 95 08/03/19 22:00 82 08/03/19 20:00 36.0 C L 87 24 H 129/60 96 08/03/19 18:37 36.4 C 82 22 H 136/69 97 08/03/19 18:00 80 08/03/19 16:00 85 08/03/19 14:00 82 Intake/Output Intake/Output: Intake & Output 08/01/19 08/02/19 08/03/19 08/04/19 23:59 23:59 23:59 23:59 Intake Total 100 1350 765 880 Output Total 550 1450 1300 850 Balance -450 -100 -535 30 Meds/Results Medications: Active Medications Generic Name Dose Route Start Last Admin Trade Name Freq PRN Reason Stop Dose Admin Acetaminophen 650 mg 07/31/19 23:13 08/03/19 23:51 Tylenol Tablet PO 650 mg Q4H PRN Administration Mild Pain (1-3) or Fever Hydrocodone Bitart/Acetaminophen 1 tab 07/31/19 23:13 [place] 5-325 Mg PO Q4H PRN Pain Rated 4-6 Aspirin 81 mg 08/01/19 09:00 08/04/19 08:12 Aspirin Ec PO 81 mg DAILY ANNITA Administration Enoxaparin Sodium 40 mg 08/01/19 09:00 08/04/19 08:12 Lovenox SUB-Q 40 mg DAILY ANNITA Administration Finasteride 5 mg 08/01/19 09:00 08/04/19 08:13 Proscar PO 5 mg DAILY ANNITA Administration Furosemide 80 mg 08/01/19 09:00 08/04/19 08:13 Lasix Inj IV PUSH 80 mg Q12HR ANNITA Administration Hydralazine HCl 25 mg 08/03/19 09:00 08/04/19 12:20 Apresoline Tablet PO 25 mg QID ANNITA Administration
--- NOTE | 2019-08-04 14:59 | PM.IMPN ---
Progress Note: A&P Assessment and Plan (1) Congestive heart failure: Qualifiers: Heart failure chronicity: acute on chronic Heart failure type: unspecified Qualified Code(s): I50.9 - Heart failure, unspecified Code(s): I50.9 - Heart failure, unspecified Status: Acute Assessment and Plan: acute on chronic systolic heart failure repeat echo EF 25% with pul HTN and diastolic dysfunction.. Not on Marbin inhibitors due to chronic renal failure. Blood pressure is adequate so added low-dose hydralazine with nitrate and continue IV furosemide per cardiology started dobutamine 08/03 to try to increase diuresis. added metolazone 2.5 today (2) Chronic renal failure, stage 3 (moderate): Code(s): N18.3 - Chronic kidney disease, stage 3 (moderate) Status: Acute Assessment and Plan: Creatinine appears close to baseline continue to monitor with IV Lasix. today 1.9 nephrotic syndrome too (3) Diabetes: Code(s): E11.9 - Type 2 diabetes mellitus without complications Status: Acute Assessment and Plan: Only on low-dose glimepiride which will hold and monitor and use sliding scale if needed BS good (4) Hypertension: Code(s): I10 - Essential (primary) hypertension Status: Acute Assessment and Plan: Pressure adequate and titrated hydralazine to 25mg q6 with nitrate and the beta-seven now dobutamine too (5) DVT prophylaxis: Code(s): Z29.9 - Encounter for prophylactic measures, unspecified Status: Acute Assessment and Plan: Lovenox Subjective Date/time seen: 08/04/19 14:59 Interval history: Date of visit 08/04/2019. 69-year-old white male with known systolic heart failure admitted with increasing edema and some shortness of breath. Admits to taking his medicine regularly and have added increased his diuretic some without relief. Has had some orthopnea but no chest pain, has diuresed some since admission but no excessive Dobutamine started 08/03 Exam Narrative: Exam Narrative: Blood pressure 160/60 pulse is 64 afebrile Pupil equal reactive to light sclera anicteric Lungs still some very faint crackle left posterior base still CV faint systolic murmur lower left sternal border Abdomen is soft nontender Extremities 2+ edema still arms and legs, distal pulses are 1+ Neuro alert no focal deficits Objective Data Vital Signs Vital Signs: Vital Signs - 24 hr 08/03/19 16:00 08/03/19 18:00 08/03/19 18:37 Temperature 36.4 C Pulse Rate 85 80 82 Respiratory Rate 22 H Blood Pressure 136/69 Pulse Oximetry 97 08/03/19 20:00 08/03/19 22:00 08/03/19 23:54 Temperature 36.0 C L 36.3 C L Pulse Rate 87 82 83 Respiratory Rate 24 H 22 H Blood Pressure 129/60 140/77 Pulse Oximetry 96 95 08/04/19 00:00 08/04/19 02:00 08/04/19 04:00 Temperature 36.6 C Pulse Rate 83 84 84 Respiratory Rate 22 H 20 Blood Pressure 141/69 H Pulse Oximetry 95 97 08/04/19 06:00 08/04/19 08:00 08/04/19 08:13 Temperature Pulse Rate 85 88 85 Respiratory Rate 24 H Blood Pressure Pulse Oximetry 95 08/04/19 08:24 08/04/19 10:00 08/04/19 12:00 Temperature 36.8 C Pulse Rate 88 70 90 Respiratory Rate 24 H Blood Pressure 160/97 H Pulse Oximetry 95 Intake/Output Intake/Output: Intake & Output 08/01/19 08/02/19 08/03/19 08/04/19 23:59 23:59 23:59 23:59 Intake Total 100 1350 765 880 Output Total 550 1450 1300 850 Balance -450 -100 -535 30 Meds/Results Medications: Active Medications Generic Name Dose Route Start Last Admin Trade Name Freq PRN Reason Stop Dose Admin Acetaminophen 650 mg 07/31/19 23:13 08/03/19 23:51 Tylenol Tablet PO 650 mg Q4H PRN Administration Mild Pain (1-3) or Fever Hydrocodone Bitart/Acetaminophen 1 tab 07/31/19 23:13 [place] 5-325 Mg PO Q4H PRN Pain Rated 4-6 Aspirin 81 mg 08/01/19 09:00 08/04/19 08:12 Aspirin Ec PO 81 mg DAILY ANNITA
--- NOTE | 2019-08-04 16:22 | PM.PNCARD ---
Progress Note: A&P Assessment and Plan (1) Acute on chronic systolic heart failure: Code(s): I50.23 - Acute on chronic systolic (congestive) heart failure Status: Acute Assessment and Plan: He presented with slowly accumulating 50-60 lb weight gain and acute on chronic systolic heart failure. He states he has been compliant with his medications; there is room to move with his diuretics. Also with his Education. In the past Dr Das did not increase his metoprolol because of bradycardia in did not add an ARB, Entresto or spironolactone because of is chronic kidney disease. Nitrates and hydralazine is a good option. Continue Hydralazine and Isordil. Continue Metoprolol succinate 100 mg daily. Diuresing fairly well pre Continue IV diuretics Increase dobutamine to 5 micrograms/kilogram per minute Daily BMP Will re-approache the thought of ICD implant at a later date. (2) Cardiomyopathy: Qualifiers: Cardiomyopathy type: dilated Qualified Code(s): I42.0 - Dilated cardiomyopathy Code(s): I42.9 - Cardiomyopathy, unspecified Status: Acute Assessment and Plan: EF about 25% since 2017 (3) Chronic renal failure, stage 3 (moderate): Code(s): N18.3 - Chronic kidney disease, stage 3 (moderate) Status: Acute Assessment and Plan: Relatively stable Nephrology following. Appreciate input (4) Hypertension: Qualifiers: Hypertension type: essential hypertension Qualified Code(s): I10 - Essential (primary) hypertension Code(s): I10 - Essential (primary) hypertension Status: Acute Assessment and Plan: Blood pressure still a bit high but improving (5) PVCs (premature ventricular contractions): Code(s): I49.3 - Ventricular premature depolarization Status: Acute Assessment and Plan: Asymptomatic PVCs Frequency of PVCs decreased from yesterday Monitor closely with increase in dobutamine (6) Knowledge deficit: Status: Acute Assessment and Plan: Reviewed CHF, cardiomyopathy, and courage the patient to call sooner if there is weight gain or swelling. (7) Pulmonary hypertension: Code(s): I27.20 - Pulmonary hypertension, unspecified Status: Acute Assessment and Plan: Patient has severe pulmonary hypertension and would not be surprised if he also has sleep apnea. Apnea link done 08/02/2019: AHI= 46.8 Will need formal sleep study as an outpatient Additional Plan Plan discussed with Dr. Stanley 1640 08/04/2019 Time Spent With Patient Time with patient: less than 15 minutes Subjective Date/time seen: 08/04/19 16:22 Interval history: Follow-up for: Acute on chronic systolic heart failure, nonischemic cardiomyopathy, hypertension, chronic kidney disease stage 3, PVCs. Date of service: 08/04/2019 Subjective: Short of breath with exertional activity. No lightheadedness. Denied any pain. Had a brief episode of nausea this morning after taking medications. Review of Systems Constitutional: Constitutional: Denies difficulty sleeping, Denies fatigue, Denies fever(s), Denies frequent falls and Reports lethargy Eyes: Eyes: Denies blurry vision ENT: Reports Normal hearing present and Denies epistaxis Cardiovascular: Cardiovascular: Denies chest pain, Denies chest pain with activity, Denies syncope, Denies rapid heart rate, Reports pedal edema, Denies edema, Reports leg edema, Denies lightheadedness, Denies palpitations, Denies dyspnea, Reports dyspnea on exertion and Denies orthopnea Respiratory: Respiratory: Reports chest congestion, Denies dyspnea, Reports dyspnea on exertion, Denies wheezing and Reports other (Raspy voice) Gastrointestinal: Gastrointestinal: Denies abdominal pain, Denies hem
[2019-08-04] MEDS: ACETAMINOPHEN 325 MG TABLET 650 MG PO (17:36)
[2019-08-04] MEDS: DOBUTamine 250 MG/D5W 250 ML 250 MG/250 ML BAG 28.4 MG IV CONT (21:11)
[2019-08-05] VITALS (17 sets, daily range): BP systolic 139–160; BP diastolic 69–99; PULSE 76–88; RESP 18–24; TEMP 36.2–36.7; O2SAT 94–98
[2019-08-05 05:44] LABS: Blood Urea Nitrogen 49 mg/dL (9-20); Calcium 8.9 mg/dL (8.4-10.2); Carbon Dioxide 23 mmol/L (22-30); Chloride 105 mmol/L (98-107); Estimated CRCL calculation 34 ml/min; Estimated Glomerular Filt Rate 35; Glucose 136 mg/dL (75-110); Phosphorus 3.5 mg/dL (2.5-4.5); Potassium 3.8 mmol/L (3.4-5.0); Sodium 139 mmol/L (137-145)
[2019-08-05] MEDS: DOBUTamine 250 MG/D5W 250 ML 250 MG/250 ML BAG 28.4 MG IV CONT (07:07)
--- NOTE | 2019-08-05 09:07 | PM.PNCARD ---
Progress Note: A&P Additional Plan Acute on chronic systolic heart failure, still volume overload, CKD stage III, plan increase lasix to 80 mg TID, wean dobutamine to 2.5 mcg then off, BP control with hydralazine and imdur. Subjective Date/time seen: 08/05/19 09:07 Interval history: no acute events overnight Sinus rhythm Review of Systems Review of Systems: Narrative: General: good sleep last night, no chills or fevers, +Ve fatigue Cardiac: No chest pain or palpitations or dizziness/syncope Respiratory: +ve SOB, no cough Abdomen: Good appetite, no nausea or vomiting or diarrhea Hematologic: No bleeding or easy bruises Neurologic: No focal weakness or numbness Other complaints: None Exam Narrative: Exam Narrative: General: able to lie flat, no acute distress Respiratory: No chest wall tenderness, equal air entry and expansion, CTAB Cardiovascular: The heart has a regular rate and rhythm without murmur, No JVD. Lower extremities: No lower extremity edema. Warm, no skin lesion or bruises. Good capillary refill. Gastrointestinal: The abdomen is soft, nontender and nondistended with active bowel sounds. Psychiatric: Normal affect and co-operative Neurologic: Alert and oriented. No focal deficits. Speech is clear. No facial drooping Objective Data Vital Signs Vital Signs: Vital Signs - 24 hr 08/04/19 10:00 08/04/19 12:00 08/04/19 14:00 Temperature Pulse Rate 70 90 87 Respiratory Rate Blood Pressure Pulse Oximetry 08/04/19 16:00 08/04/19 18:00 08/04/19 19:43 Temperature 36.5 C 36.1 C L Pulse Rate 85 85 83 Respiratory Rate 18 22 H Blood Pressure 136/69 152/84 H Pulse Oximetry 98 95 08/04/19 19:55 08/04/19 20:00 08/04/19 21:49 Temperature Pulse Rate 83 82 85 Respiratory Rate 22 H Blood Pressure Pulse Oximetry 95 08/04/19 23:47 08/04/19 23:55 08/05/19 00:00 Temperature 36.1 C L Pulse Rate 85 85 78 Respiratory Rate 20 20 Blood Pressure 147/67 H Pulse Oximetry 97 97 08/05/19 01:58 08/05/19 04:00 08/05/19 04:35 Temperature 36.2 C L Pulse Rate 85 85 85 Respiratory Rate 24 H 24 H Blood Pressure 154/72 H Pulse Oximetry 97 97 08/05/19 06:00 08/05/19 08:00 Temperature 36.7 C Pulse Rate 86 86 Respiratory Rate 20 Blood Pressure 139/69 Pulse Oximetry 94 Intake/Output Intake/Output: Intake & Output 08/02/19 08/03/19 08/04/19 08/05/19 23:59 23:59 23:59 23:59 Intake Total 9338 707 2647 1090 Output Total 1450 1300 1850 1100 Balance -100 -535 -130 -10 Meds/Results Medications: Active Medications Generic Name Dose Route Start Last Admin Trade Name Freq PRN Reason Stop Dose Admin Acetaminophen 650 mg 07/31/19 23:13 08/04/19 17:36 Tylenol Tablet PO 650 mg Q4H PRN Administration Mild Pain (1-3) or Fever Hydrocodone Bitart/Acetaminophen 1 tab 07/31/19 23:13 [place] 5-325 Mg PO Q4H PRN Pain Rated 4-6 Aspirin 81 mg 08/01/19 09:00 08/04/19 08:12 Aspirin Ec PO 81 mg DAILY ANNITA Administration Enoxaparin Sodium 40 mg 08/01/19 09:00 08/04/19 08:12 Lovenox SUB-Q 40 mg DAILY ANNITA Administration Finasteride 5 mg 08/01/19 09:00 08/04/19 08:13 Proscar PO 5 mg DAILY ANNITA Administration Furosemide 80 mg 08/01/19 09:00 08/04/19 21:12 Lasix Inj IV PUSH 80 mg Q12HR ANNITA Administration Hydralazine HCl 25 mg 08/03/19 09:00 08/04/19 21:13 Apresoline Tablet PO 25 mg QID ANNITA Administration Dobutamine HCl/Dextrose 250 mg in 250 mls @ 14.175 mls/hr 08/03/19 09:40 08/05/19 07:07 Dobutamine 250 Mg/D5w 250 Ml IV CONT 5 mcg/kg/min .[id number] ANNITA 28.4 mls/hr Administration 2.5 MCG/KG/MIN Isosorbide Mononitrate 30 mg 08/04/19 09:00 08/04/19 08:12 Imdur PO 30 mg QAM ANNITA Administration Metoprolol Succinate 100 mg 08/01/19 09:00 08/04/19 08:13 Toprol Xl PO 100 mg DAILY ANNITA Administration Ondansetron HCl 4 mg 07/31/19 23:1
[2019-08-05] MEDS: ASPIRIN 81 MG ENTERIC TABLET PO (09:55)
[2019-08-05] MEDS: ENOXAPARIN 40 MG/0.4 ML SYRINGE SUB-Q (09:55)
[2019-08-05] MEDS: FINASTERIDE 5 MG TABLET PO (09:55)
[2019-08-05] MEDS: hydrALAZINE HCL 25 MG TABLET PO ×4 (09:56→20:06)
[2019-08-05] MEDS: FUROSEMIDE INJ 100 MG/10 ML VIAL 80 MG IV PUSH ×3 (09:56→17:50)
[2019-08-05] MEDS: ISOSORBIDE MONONITRATE 30 MG TAB.ER.24H PO (09:57)
[2019-08-05] MEDS: POTASSIUM CHLORIDE 20 MEQ TABLET.ER PO (09:57)
[2019-08-05] MEDS: SERTRALINE HCL 50 MG TABLET PO (09:57)
[2019-08-05] MEDS: METOPROLOL SUCCINATE EXT REL 100 MG TABCR PO (09:58)
[2019-08-05] MEDS: metOLazone 2.5 MG TABLET 5 MG PO (11:28)
--- NOTE | 2019-08-05 11:32 | PM.PNNEP ---
Progress Note: A&P Assessment and Plan (1) Chronic kidney disease, stage 3: Code(s): N18.3 - Chronic kidney disease, stage 3 (moderate) Status: Chronic Assessment and Plan: baseline creatinine (from review of office records) runs ~ 2.0 - 2.5mg/dl due to hypertension, diabetes, and a component of cardiorenal syndrome (chronic pre-renal azotemia worsened by need for chronic diuretic therapy) Creatinine improved minimally with Dobutamine therapy. (2) Nephrotic range proteinuria: Code(s): R80.9 - Proteinuria, unspecified Status: Chronic Assessment and Plan: long standing issue from review of outpatient records (has fluctuated ~ 5 - 7 grams) undoubtedly contributing to his volume status as well (3) Anasarca: Code(s): R60.1 - Generalized edema Status: Acute Assessment and Plan: significant deterioration noted Interestingly all the fluid is in his legs. Very little in his lungs. The echocardiogram does show decreased LV function but also shows right-sided heart failure, pulmonary hypertension, tricuspid regurgitation which is severe. Some most likely this is his problem. The patient does snore so could have sleep apnea in addition. Since this is reversible will check an apnea link. (4) Acute on chronic systolic heart failure: Code(s): I50.23 - Acute on chronic systolic (congestive) heart failure Status: Acute Assessment and Plan: Cardiology following Off the dobutamine drip. It did not improve his urine output or creatinine very much. Most likely his pulmonary hypertension and right-sided heart failure are playing a large role. (5) Hypertension: Qualifiers: Hypertension type: essential hypertension Qualified Code(s): I10 - Essential (primary) hypertension Code(s): I10 - Essential (primary) hypertension Status: Acute Assessment and Plan: Blood pressure good today. Will continue to follow. Subjective Date/time seen: 08/05/19 11:32 Interval history: The patient is feeling about the same. He is still very swollen. No chest pain. He is not on oxygen. And is not short of breath. He says that he snores. Review of Systems Cardiovascular: Cardiovascular: Reports no additional cardiovascular complaints Respiratory: Respiratory: Reports no additional respiratory complaints Gastrointestinal: Gastrointestinal: Reports no additional gastrointestinal complaints Genitourinary: Genitourinary: Reports no additional male genitourinary complaints Exam Narrative: Exam Narrative: General: WD/WN male in NAD Heart: normal S1 and S2; no rub Lungs: decreased with rare crackles at the bases. Abdomen: soft, nontender, nondistended, positive bowel sounds Extremities: no cyanosis or clubbing; 3+ edema Skin: No rash Objective Data Vital Signs Vital Signs: Vital Signs - 24 hr 08/04/19 12:00 08/04/19 14:00 08/04/19 16:00 Temperature 36.5 C Pulse Rate 90 87 85 Respiratory Rate 18 Blood Pressure 136/69 Pulse Oximetry 98 08/04/19 18:00 08/04/19 19:43 08/04/19 19:55 Temperature 36.1 C L Pulse Rate 85 83 83 Respiratory Rate 22 H 22 H Blood Pressure 152/84 H Pulse Oximetry 95 95 08/04/19 20:00 08/04/19 21:49 08/04/19 23:47 Temperature 36.1 C L Pulse Rate 82 85 85 Respiratory Rate 20 Blood Pressure 147/67 H Pulse Oximetry 97 08/04/19 23:55 08/05/19 00:00 08/05/19 01:58 Temperature Pulse Rate 85 78 85 Respiratory Rate 20 Blood Pressure Pulse Oximetry 97 08/05/19 04:00 08/05/19 04:35 08/05/19 06:00 Temperature 36.2 C L Pulse Rate 85 85 86 Respiratory Rate 24 H 24 H Blood Pressure 154/72 H Pulse Oximetry 97 97 08/05/19 08:00 08/05/19 09:58 08/05/19 10:00 Temperature 36.7 C Pulse Rate 86 84 83 Respiratory Rate 20 Blood Pressure 139/69 Pulse Oximetry 94 Intake/Output Intake/Output: Intake & Output 08/02/19 01
--- NOTE | 2019-08-05 15:32 | PM.IMPN ---
Progress Note: A&P Assessment and Plan (1) Congestive heart failure: Qualifiers: Heart failure chronicity: acute on chronic Heart failure type: unspecified Qualified Code(s): I50.9 - Heart failure, unspecified Code(s): I50.9 - Heart failure, unspecified Status: Acute Assessment and Plan: acute on chronic systolic heart failure repeat echo EF 25% with pul HTN and diastolic dysfunction.. Not on Marbin inhibitors due to chronic renal failure. Blood pressure is adequate so added low-dose hydralazine with nitrate and continue IV furosemide per cardiology started dobutamine 08/03 to try to increase diuresis and stopped today. added metolazone 5.0 today (2) Chronic renal failure, stage 3 (moderate): Code(s): N18.3 - Chronic kidney disease, stage 3 (moderate) Status: Acute Assessment and Plan: Creatinine appears close to baseline continue to monitor with IV Lasix. today 1.9 nephrotic syndrome too (3) Diabetes: Code(s): E11.9 - Type 2 diabetes mellitus without complications Status: Acute Assessment and Plan: Only on low-dose glimepiride which will hold and monitor and use sliding scale if needed BS good (4) Hypertension: Qualifiers: Hypertension type: essential hypertension Qualified Code(s): I10 - Essential (primary) hypertension Code(s): I10 - Essential (primary) hypertension Status: Acute Assessment and Plan: Pressure adequate and titrated hydralazine to 25mg q6 with nitrate and the beta-seven do not want to lower too much to decrease renal perfusion (5) DVT prophylaxis: Code(s): Z29.9 - Encounter for prophylactic measures, unspecified Status: Acute Assessment and Plan: Lovenox Subjective Date/time seen: 08/05/19 15:32 Interval history: Date of visit 08/05/2019. 69-year-old white male with known systolic heart failure admitted with increasing edema and some shortness of breath. Admits to taking his medicine regularly and have added increased his diuretic some without relief. Has had some orthopnea but no chest pain, has diuresed some since admission but no excessive Dobutamine started 08/03 and off today per cardiology Exam Narrative: Exam Narrative: Blood pressure 160/90 pulse is 64 afebrile Pupil equal reactive to light sclera anicteric Lungs still some very faint crackle left posterior base still CV faint systolic murmur lower left sternal border Abdomen is soft nontender Extremities 2+ edema still arms and legs, distal pulses are 1+ Neuro alert no focal deficits Objective Data Vital Signs Vital Signs: Vital Signs - 24 hr 08/04/19 16:00 08/04/19 18:00 08/04/19 19:43 Temperature 36.5 C 36.1 C L Pulse Rate 85 85 83 Respiratory Rate 18 22 H Blood Pressure 136/69 152/84 H Pulse Oximetry 98 95 08/04/19 19:55 08/04/19 20:00 08/04/19 21:49 Temperature Pulse Rate 83 82 85 Respiratory Rate 22 H Blood Pressure Pulse Oximetry 95 08/04/19 23:47 08/04/19 23:55 08/05/19 00:00 Temperature 36.1 C L Pulse Rate 85 85 78 Respiratory Rate 20 20 Blood Pressure 147/67 H Pulse Oximetry 97 97 08/05/19 01:58 08/05/19 04:00 08/05/19 04:35 Temperature 36.2 C L Pulse Rate 85 85 85 Respiratory Rate 24 H 24 H Blood Pressure 154/72 H Pulse Oximetry 97 97 08/05/19 06:00 08/05/19 08:00 08/05/19 09:58 Temperature 36.7 C Pulse Rate 86 86 84 Respiratory Rate 20 Blood Pressure 139/69 Pulse Oximetry 94 08/05/19 10:00 08/05/19 12:00 08/05/19 12:30 Temperature 36.5 C Pulse Rate 83 79 81 Respiratory Rate 22 H Blood Pressure 160/99 H Pulse Oximetry 98 08/05/19 14:53 Temperature Pulse Rate 81 Respiratory Rate Blood Pressure Pulse Oximetry Intake/Output Intake/Output: Intake & Output 08/02/19 08/03/19 08/04/19 08/05/19 23:59 23:59 23:59 23:59 Intake Total 7766 126 5815 1210 Output Total 1450 1300 1850 1100 Balance -100 -535 -130 1
[2019-08-06] VITALS (11 sets, daily range): BP systolic 117–169; BP diastolic 57–93; PULSE 71–86; RESP 18–24; TEMP 36.2–37.2; O2SAT 93–97
[2019-08-06 04:41] LABS: Albumin Level 3.1 g/dL (3.5-5.1); Blood Urea Nitrogen 49 mg/dL (9-20); Carbon Dioxide 23 mmol/L (22-30); Chloride 105 mmol/L (98-107); Estimated CRCL calculation 33 ml/min; Estimated Glomerular Filt Rate 35; Glucose 122 mg/dL (75-110); Phosphorus 3.7 mg/dL (2.5-4.5); Potassium 3.5 mmol/L (3.4-5.0); Sodium 140 mmol/L (137-145)
[2019-08-06] MEDS: POTASSIUM CHLORIDE 20 MEQ TABLET PO (09:01)
[2019-08-06] MEDS: metOLazone 5 MG TABLET PO (09:01)
[2019-08-06] MEDS: SERTRALINE HCL 50 MG TABLET PO (09:02)
[2019-08-06] MEDS: hydrALAZINE HCL 25 MG TABLET PO (09:02)
[2019-08-06] MEDS: FINASTERIDE 5 MG TABLET PO (09:02)
[2019-08-06] MEDS: ASPIRIN 81 MG ENTERIC TABLET PO (09:02)
[2019-08-06] MEDS: ISOSORBIDE MONONITRATE 30 MG TAB.ER.24H PO (09:02)
[2019-08-06] MEDS: METOPROLOL SUCCINATE EXT REL 100 MG TABCR PO (09:04)
[2019-08-06] MEDS: POTASSIUM CHLORIDE 20 MEQ TABLET.ER PO (09:04)
[2019-08-06] MEDS: ENOXAPARIN 40 MG/0.4 ML SYRINGE SUB-Q (09:05)
[2019-08-06] MEDS: FUROSEMIDE INJ 100 MG/10 ML VIAL 80 MG IV PUSH ×3 (09:05→17:25)
--- NOTE | 2019-08-06 11:11 | PC.NURSE ---
This patient, Natan Drew, was transferred to [address] 08/06/19 at 1105. Personal belongings sent with patient. Belongings list checked and signed with receiving RN. Report given to WENDY Davies. Appropriate documentation sent with patient.
--- NOTE | 2019-08-06 11:19 | PC.NURSE ---
This patient, Natan Drew, was received from IMU on 08/06/19 at 1105. Personal belongings sent with patient. Appropriate documentation received with patient.
[2019-08-06] MEDS: hydrALAZINE HCL 50 MG TABLET PO ×2 (13:00→17:25)
--- NOTE | 2019-08-06 13:13 | PM.PNNEP ---
Progress Note: A&P Assessment and Plan (1) Chronic kidney disease, stage 3: Code(s): N18.3 - Chronic kidney disease, stage 3 (moderate) Status: Chronic Assessment and Plan: baseline creatinine (from review of office records) runs ~ 2.0 - 2.5mg/dl due to hypertension, diabetes, and a component of cardiorenal syndrome (chronic pre-renal azotemia worsened by need for chronic diuretic therapy) Creatinine seems to be at about baseline. (2) Nephrotic range proteinuria: Code(s): R80.9 - Proteinuria, unspecified Status: Chronic Assessment and Plan: long standing issue from review of outpatient records (has fluctuated ~ 5 - 7 grams) undoubtedly contributing to his volume status as well (3) Anasarca: Code(s): R60.1 - Generalized edema Status: Acute Assessment and Plan: significant deterioration noted Multiple reasons for his swelling. He has pulmonary hypertension. He also has tricuspid regurgitation. He also may have sleep apnea. And further he has LV dysfunction. Which of these are the carts and which are the horses is difficult to tease out in this situation. The patient also has nephrotic range proteinuria which could certainly contribute to the swelling as well. He is currently on Lasix 80 IV 3 times a day. We will add metolazone. (4) Acute on chronic systolic heart failure: Code(s): I50.23 - Acute on chronic systolic (congestive) heart failure Status: Acute Assessment and Plan: Cardiology following Off the dobutamine drip. It did not improve his urine output or creatinine very much. (5) Hypertension: Qualifiers: Hypertension type: essential hypertension Qualified Code(s): I10 - Essential (primary) hypertension Code(s): I10 - Essential (primary) hypertension Status: Acute Assessment and Plan: Blood pressure good today. Subjective Date/time seen: 08/06/19 13:13 Interval history: The patient is feeling about the same. He is still very swollen. Some weeping from the left arm. He made a lot of urine yesterday. Apnea link was done last night. Review of Systems Cardiovascular: Cardiovascular: Reports no additional cardiovascular complaints Respiratory: Respiratory: Reports no additional respiratory complaints Gastrointestinal: Gastrointestinal: Reports no additional gastrointestinal complaints Genitourinary: Genitourinary: Reports no additional male genitourinary complaints Exam Narrative: Exam Narrative: General: WD/WN male in NAD Heart: normal S1 and S2; no rub or gallop Lungs: decreased with rare crackles at the bases. Abdomen: soft, nontender, nondistended, positive bowel sounds Extremities: no cyanosis or clubbing; 3+ edema Skin: No rash or subcu nodules Objective Data Vital Signs Vital Signs: Vital Signs - 24 hr 08/05/19 14:53 08/05/19 16:00 08/05/19 16:30 Temperature 36.5 C Pulse Rate 81 76 77 Respiratory Rate 20 Blood Pressure 149/84 H Pulse Oximetry 97 08/05/19 18:19 08/05/19 19:35 08/05/19 20:00 Temperature 36.3 C L Pulse Rate 86 81 81 Respiratory Rate 18 18 Blood Pressure 153/71 H Pulse Oximetry 96 96 08/05/19 21:48 08/06/19 00:00 08/06/19 00:06 Temperature 36.4 C Pulse Rate 78 82 82 Respiratory Rate 22 H 22 H Blood Pressure 136/63 Pulse Oximetry 96 96 08/06/19 02:00 08/06/19 04:00 08/06/19 05:20 Temperature 36.6 C Pulse Rate 82 85 77 Respiratory Rate 18 18 Blood Pressure 149/73 H Pulse Oximetry 97 95 08/06/19 05:54 08/06/19 08:00 08/06/19 09:04 Temperature 37.2 C Pulse Rate 71 83 86 Respiratory Rate 24 H Blood Pressure 169/93 H Pulse Oximetry 96 08/06/19 10:04 Temperature Pulse Rate 82 Respiratory Rate Blood Pressure Pulse Oximetry Intake/Output Intake/Output: Intake & Output 08/03/19 08/04/19 08/05/19 08/06/19 23:59 23:59 23:59 23:59 Intake Total 765 1720 2450 690 Ou
--- NOTE | 2019-08-06 15:27 | PM.IMPN ---
Progress Note: A&P Assessment and Plan (1) Congestive heart failure: Qualifiers: Heart failure chronicity: acute on chronic Heart failure type: unspecified Qualified Code(s): I50.9 - Heart failure, unspecified Code(s): I50.9 - Heart failure, unspecified Status: Acute Assessment and Plan: acute on chronic systolic heart failure repeat echo EF 25% with pul HTN and diastolic dysfunction.. Not on Marbin inhibitors due to chronic renal failure. Blood pressure is adequate so added low-dose hydralazine with nitrate and continue IV furosemide(now q8H) per cardiology started dobutamine 08/03 to try to increase diuresis and stopped 08/05. added metolazone 08/04 and increased to 5 qd 08/05. moniter renal status closely CXR today better less effusion and less PVR (2) Chronic renal failure, stage 3 (moderate): Code(s): N18.3 - Chronic kidney disease, stage 3 (moderate) Status: Acute Assessment and Plan: Creatinine appears close to baseline continue to monitor with IV Lasix. today 1.9 again nephrotic syndrome too (3) Diabetes: Code(s): E11.9 - Type 2 diabetes mellitus without complications Status: Acute Assessment and Plan: Only on low-dose glimepiride which will hold and monitor and use sliding scale if needed BS good (4) Hypertension: Qualifiers: Hypertension type: essential hypertension Qualified Code(s): I10 - Essential (primary) hypertension Code(s): I10 - Essential (primary) hypertension Status: Acute Assessment and Plan: Pressure adequate and titrated hydralazine to 25mg q6 with nitrate and the beta-seven do not want to lower too much to decrease renal perfusion (5) DVT prophylaxis: Code(s): Z29.9 - Encounter for prophylactic measures, unspecified Status: Acute Assessment and Plan: Lovenox Subjective Date/time seen: 08/06/19 15:27 Interval history: Date of visit 08/06/2019. 69-year-old white male with known systolic heart failure admitted with increasing edema and some shortness of breath. Admits to taking his medicine regularly and have added increased his diuretic some without relief. Has had some orthopnea but no chest pain, has diuresed some since admission and more last 24 hours with increase dose of diuretics Dobutamine started 08/03 and off 08/05 per cardiology Exam Narrative: Exam Narrative: Blood pressure 146/74 pulse is 64 afebrile Pupil equal reactive to light sclera anicteric Lungs clear today CV faint systolic murmur lower left sternal border Abdomen is soft nontender Extremities 2+ edema still arms and legs, distal pulses are 1+ but edema subsiding slightly Neuro alert no focal deficits Objective Data Vital Signs Vital Signs: Vital Signs - 24 hr 08/05/19 16:00 08/05/19 16:30 08/05/19 18:19 Temperature 36.5 C Pulse Rate 76 77 86 Respiratory Rate 20 Blood Pressure 149/84 H Pulse Oximetry 97 08/05/19 19:35 08/05/19 20:00 08/05/19 21:48 Temperature 36.3 C L Pulse Rate 81 81 78 Respiratory Rate 18 18 Blood Pressure 153/71 H Pulse Oximetry 96 96 08/06/19 00:00 08/06/19 00:06 08/06/19 02:00 Temperature 36.4 C Pulse Rate 82 82 82 Respiratory Rate 22 H 22 H Blood Pressure 136/63 Pulse Oximetry 96 96 08/06/19 04:00 08/06/19 05:20 08/06/19 05:54 Temperature 36.6 C Pulse Rate 85 77 71 Respiratory Rate 18 18 Blood Pressure 149/73 H Pulse Oximetry 97 95 08/06/19 08:00 08/06/19 09:04 08/06/19 10:04 Temperature 37.2 C Pulse Rate 83 86 82 Respiratory Rate 24 H Blood Pressure 169/93 H Pulse Oximetry 96 08/06/19 14:39 Temperature 36.7 C Pulse Rate 82 Respiratory Rate 20 Blood Pressure 127/80 Pulse Oximetry 96 Intake/Output Intake/Output: Intake & Output 08/03/19 08/04/19 08/05/19 08/06/19 23:59 23:59 23:59 23:59 Intake Total 765 1720 2450 930 Output Total 1300 1850 3750 1050 Balance -535 -130 -1300 -120 Meds/Results Me
--- NOTE | 2019-08-06 15:52 | PM.PNCARD ---
Progress Note: A&P Additional Plan Acute on chronic systolic heart failure, still volume overload, CKD stage III, plan cont lasix to 80 mg TID, metolazone 5 mg daily may decrease to 2.5 mg tomorrow if ptnis negative > 4 L, BP control with hydralazine and imdur. watch K, Mg and renal function Subjective Date/time seen: 08/06/19 15:52 Interval history: Feels same with intermittent SOB but generally improving since admission Review of Systems Review of Systems: Narrative: General: good sleep last night, no chills or fevers Cardiac: No chest pain or palpitations or dizziness/syncope Respiratory: +ve SOB or cough Abdomen: Good appetite, no nausea or vomiting or diarrhea Hematologic: No bleeding or easy bruises Neurologic: No focal weakness or numbness Other complaints: None Exam Narrative: Exam Narrative: General: able to lie flat, no acute distress Respiratory: No chest wall tenderness, equal air entry and expansion, CTAB Cardiovascular: The heart has a regular rate and rhythm without murmur, No JVD. Lower extremities: No lower extremity edema. Warm, no skin lesion or bruises. Good capillary refill. Gastrointestinal: The abdomen is soft, nontender and nondistended with active bowel sounds. Psychiatric: Normal affect and co-operative Neurologic: Alert and oriented. No focal deficits. Speech is clear. No facial drooping. Objective Data Vital Signs Vital Signs: Vital Signs - 24 hr 08/05/19 16:00 08/05/19 16:30 08/05/19 18:19 Temperature 36.5 C Pulse Rate 76 77 86 Respiratory Rate 20 Blood Pressure 149/84 H Pulse Oximetry 97 08/05/19 19:35 08/05/19 20:00 08/05/19 21:48 Temperature 36.3 C L Pulse Rate 81 81 78 Respiratory Rate 18 18 Blood Pressure 153/71 H Pulse Oximetry 96 96 08/06/19 00:00 08/06/19 00:06 08/06/19 02:00 Temperature 36.4 C Pulse Rate 82 82 82 Respiratory Rate 22 H 22 H Blood Pressure 136/63 Pulse Oximetry 96 96 08/06/19 04:00 08/06/19 05:20 08/06/19 05:54 Temperature 36.6 C Pulse Rate 85 77 71 Respiratory Rate 18 18 Blood Pressure 149/73 H Pulse Oximetry 97 95 08/06/19 08:00 08/06/19 09:04 08/06/19 10:04 Temperature 37.2 C Pulse Rate 83 86 82 Respiratory Rate 24 H Blood Pressure 169/93 H Pulse Oximetry 96 08/06/19 14:39 Temperature 36.7 C Pulse Rate 82 Respiratory Rate 20 Blood Pressure 127/80 Pulse Oximetry 96 Intake/Output Intake/Output: Intake & Output 08/03/19 08/04/19 08/05/19 08/06/19 23:59 23:59 23:59 23:59 Intake Total 765 1720 2450 930 Output Total 1300 1850 3750 1050 Balance -535 -130 -1300 -120 Meds/Results Medications: Active Medications Generic Name Dose Route Start Last Admin Trade Name Freq PRN Reason Stop Dose Admin Acetaminophen 650 mg 07/31/19 23:13 08/04/19 17:36 Tylenol Tablet PO 650 mg Q4H PRN Administration Mild Pain (1-3) or Fever Hydrocodone Bitart/Acetaminophen 1 tab 07/31/19 23:13 [place] 5-325 Mg PO Q4H PRN Pain Rated 4-6 Aspirin 81 mg 08/01/19 09:00 08/06/19 09:02 Aspirin Ec PO 81 mg DAILY ANNITA Administration Enoxaparin Sodium 40 mg 08/01/19 09:00 08/06/19 09:05 Lovenox SUB-Q 40 mg DAILY ANNITA Administration Finasteride 5 mg 08/01/19 09:00 08/06/19 09:02 Proscar PO 5 mg DAILY ANNITA Administration Furosemide 80 mg 08/05/19 09:00 08/06/19 12:59 Lasix Inj IV PUSH 80 mg TID ANNITA Administration Hydralazine HCl 50 mg 08/06/19 13:00 08/06/19 13:00 Apresoline Tablet PO 50 mg TID ANNITA Administration Isosorbide Mononitrate 60 mg 08/07/19 09:00 Imdur PO QAM ANNITA Metolazone 5 mg 08/07/19 09:00 Zaroxolyn PO QAM ANNITA Metoprolol Succinate 100 mg 08/01/19 09:00 08/06/19 09:04 Toprol Xl PO 100 mg DAILY ANNITA Administration Ondansetron HCl 4 mg 07/31/19 23:13 Zofran Inj IV PUSH Q4H PRN Nausea Potassium Chloride 20 meq 08/01/19 09:00 08/06/19 09
--- NOTE | 2019-08-06 16:27 | PCOTNOTE ---
The patient treatment was not able to be completed. Will plan to continue treatment per plan of care.
[2019-08-07 05:46] VITALS: BP 148/81; PULSE 80; RESP 20; TEMP 36.2; O2SAT 95
[2019-08-07 06:46] LABS: Basophils Absolute Auto 0.1 K/mm3 (0.0-0.1); Basophils Percent Auto 0.4 % (0.2-1.2); Eosinophils Absolute Auto 0.7 K/mm3 (0-0.3); Eosinophils Percent Auto 5.4 % (0-4.4); Hematocrit 32.1 % (42.0-52.0); Hemoglobin 10.2 g/dL (14.0-18.0); Immature Granulocyte Absolute 0.08 K/mm3 (0.00-0.031); Immature Granulocyte Percent A 0.7 % (0-0.5); Lymphocytes Absolute Auto 0.51 K/mm3 (0.9-3.2); Lymphocytes Percent Auto 4.2 % (18.3-44.2); Mean Corpuscular HGB Conc 31.8 g/dl (32-36); Mean Corpuscular Hemoglobin 27.2 pg (26-34); Mean Corpuscular Volume 85.6 fl (80-100); Mean Platelet Volume 9.9 fl (7.4-10.4); Monocytes Absolute Auto 0.9 K/mm3 (0.1-0.6); Monocytes Percent Auto 7.3 % (2.6-8.5); Neutrophils Absolute Auto 9.9 K/mm3 (1.3-6.7); Platelet Count Result 220 k/mm3 (150-375); Red Blood Count 3.75 M/mm3 (4.6-6.20); Red Cell Distribution Width 18.4 % (11.5-14.5); White Blood Count 12.1 K/mm3 (4.5-10.0)
[2019-08-07 06:56] LABS: Blood Urea Nitrogen 51 mg/dL (9-20); Calcium 8.9 mg/dL (8.4-10.2); Carbon Dioxide 25 mmol/L (22-30); Chloride 100 mmol/L (98-107); Estimated CRCL calculation 31 ml/min; Estimated Glomerular Filt Rate 33; Glucose 124 mg/dL (75-110); Phosphorus 3.8 mg/dL (2.5-4.5); Sodium 138 mmol/L (137-145)
[2019-08-07 08:00] VITALS: PULSE 80; RESP 20; O2SAT 95
[2019-08-07] MEDS: FUROSEMIDE INJ 100 MG/10 ML VIAL 80 MG IV PUSH ×3 (08:07→17:27)
[2019-08-07] MEDS: POTASSIUM CHLORIDE 20 MEQ TABLET 40 MEQ PO ×2 (08:10→17:28)
[2019-08-07] MEDS: SERTRALINE HCL 50 MG TABLET PO (08:11)
[2019-08-07] MEDS: ASPIRIN 81 MG ENTERIC TABLET PO (08:11)
[2019-08-07] MEDS: metOLazone 5 MG TABLET PO (08:12)
[2019-08-07] MEDS: ENOXAPARIN 40 MG/0.4 ML SYRINGE SUB-Q (08:12)
--- NOTE | 2019-08-07 08:12 | PM.PNNEP ---
Progress Note: A&P Assessment and Plan (1) Chronic kidney disease, stage 3: Code(s): N18.3 - Chronic kidney disease, stage 3 (moderate) Status: Chronic Assessment and Plan: Creatinine seems to be at about baseline at 2.0. . (2) Nephrotic range proteinuria: Code(s): R80.9 - Proteinuria, unspecified Status: Chronic Assessment and Plan: long standing issue from review of outpatient records (has fluctuated ~ 5 - 7 grams) Due to diabetes (3) Anasarca: Code(s): R60.1 - Generalized edema Status: Acute Assessment and Plan: significant deterioration noted Multiple reasons for his swelling. He has pulmonary hypertension. He also has tricuspid regurgitation. He also may have sleep apnea. And further he has LV dysfunction. Which of these are the carts and which are the horses is difficult to tease out in this situation. The patient also has nephrotic range proteinuria which could certainly contribute to the swelling as well. He is currently on Lasix 80 IV 3 times a day. Metolazone starts today (4) Acute on chronic systolic heart failure: Code(s): I50.23 - Acute on chronic systolic (congestive) heart failure Status: Acute Assessment and Plan: Cardiology following Continue diuretics (5) Hypertension: Qualifiers: Hypertension type: essential hypertension Qualified Code(s): I10 - Essential (primary) hypertension Code(s): I10 - Essential (primary) hypertension Status: Acute Assessment and Plan: Blood pressure good today. Additional Plan Subjective Date/time seen: 08/07/19 08:12 Interval history: The patient is feeling about the same. His arm is not weeping anymore. His weight is down to just 37 lb over his dry weight Review of Systems Cardiovascular: Cardiovascular: Reports no additional cardiovascular complaints Respiratory: Respiratory: Reports no additional respiratory complaints Gastrointestinal: Gastrointestinal: Reports no additional gastrointestinal complaints Genitourinary: Genitourinary: Reports no additional male genitourinary complaints Exam Narrative: Exam Narrative: General: WD/WN male in NAD Heart: normal S1 and S2; no rub Lungs: decreased with rare crackles at the bases. Abdomen: soft, nontender, nondistended, positive bowel sounds Extremities: no cyanosis or clubbing; 3+ edema Skin: No rash Objective Data Vital Signs Vital Signs: Vital Signs - 24 hr 08/06/19 09:04 08/06/19 10:04 08/06/19 14:39 Temperature 36.7 C Pulse Rate 86 82 82 Respiratory Rate 20 Blood Pressure 127/80 Pulse Oximetry 96 08/06/19 21:48 08/07/19 05:46 Temperature 36.2 C L 36.2 C L Pulse Rate 82 80 Respiratory Rate 18 20 Blood Pressure 117/57 L 148/81 H Pulse Oximetry 93 95 Intake/Output Intake/Output: Intake & Output 08/04/19 08/05/19 08/06/19 08/07/19 23:59 23:59 23:59 23:59 Intake Total 1720 2450 1730 300 Output Total 1850 3750 2650 1050 Balance 130 -1382 -920 -750 Meds/Results Medications: Active Medications Generic Name Dose Route Start Last Admin Trade Name Freq PRN Reason Stop Dose Admin Acetaminophen 650 mg 07/31/19 23:13 08/04/19 17:36 Tylenol Tablet PO 650 mg Q4H PRN Administration Mild Pain (1-3) or Fever Hydrocodone Bitart/Acetaminophen 1 tab 07/31/19 23:13 [place] 5-325 Mg PO Q4H PRN Pain Rated 4-6 Aspirin 81 mg 08/01/19 09:00 08/06/19 09:02 Aspirin Ec PO 81 mg DAILY ANNITA Administration Enoxaparin Sodium 40 mg 08/01/19 09:00 08/06/19 09:05 Lovenox SUB-Q 40 mg DAILY ANNITA Administration Finasteride 5 mg 08/01/19 09:00 08/06/19 09:02 Proscar PO 5 mg DAILY ANNITA Administration Furosemide 80 mg 08/05/19 09:00 08/06/19 17:25 Lasix Inj IV PUSH 80 mg TID ANNITA Administration Hydralazine HCl 50 mg 08/06/19 13:00 08/06/19 17:25 Apresoline T
[2019-08-07] MEDS: ISOSORBIDE MONONITRATE 60 MG TAB.ER.24H PO (08:13)
[2019-08-07] MEDS: FINASTERIDE 5 MG TABLET PO (08:13)
[2019-08-07] MEDS: METOPROLOL SUCCINATE EXT REL 100 MG TABCR PO (08:14)
[2019-08-07] MEDS: hydrALAZINE HCL 50 MG TABLET PO ×3 (08:14→17:28)
[2019-08-07 14:00] VITALS: BP 134/73; PULSE 83; RESP 18; TEMP 36.1; O2SAT 93
--- NOTE | 2019-08-07 14:43 | PM.IMPN ---
Progress Note: A&P Assessment and Plan (1) Congestive heart failure: Qualifiers: Heart failure chronicity: acute on chronic Heart failure type: unspecified Qualified Code(s): I50.9 - Heart failure, unspecified Code(s): I50.9 - Heart failure, unspecified Status: Acute Assessment and Plan: acute on chronic systolic heart failure repeat echo EF 25% with pul HTN and diastolic dysfunction.. Not on Marbin inhibitors due to chronic renal failure. Blood pressure is adequate so added low-dose hydralazine with nitrate and continue IV furosemide(now q8H) per cardiology started dobutamine 08/03 to try to increase diuresis and stopped 08/05. added metolazone 08/04 and increased to 5 qd 08/05. moniter renal status closely CXR today better less effusion and less PVR 2/2 May be candidate for aldactone if k stays low, with careful monitering with his CRF (2) Chronic renal failure, stage 3 (moderate): Code(s): N18.3 - Chronic kidney disease, stage 3 (moderate) Status: Acute Assessment and Plan: Creatinine appears close to baseline, continue to monitor with IV Lasix. creatinine 2.0 today nephrotic syndrome too (3) Diabetes: Code(s): E11.9 - Type 2 diabetes mellitus without complications Status: Acute Assessment and Plan: Only on low-dose glimepiride which will hold and monitor and use sliding scale if needed BS good FBS 124 today. (4) Hypertension: Qualifiers: Hypertension type: essential hypertension Qualified Code(s): I10 - Essential (primary) hypertension Code(s): I10 - Essential (primary) hypertension Status: Acute Assessment and Plan: Pressure adequate and titrated hydralazine to 25mg q6 with nitrate and the beta-seven do not want to lower too much to decrease renal perfusion (5) DVT prophylaxis: Code(s): Z29.9 - Encounter for prophylactic measures, unspecified Status: Acute Assessment and Plan: Lovenox Subjective Date/time seen: 08/07/19 14:44 Interval history: Date of visit 08/07/2019. 69-year-old white male with known systolic heart failure admitted with increasing edema and some shortness of breath. Admits to taking his medicine regularly and have added increased his diuretic some without relief. Has had some orthopnea but no chest pain, has diuresed some since admission and more last 48 hours with increase dose of diuretics Dobutamine started 08/03 and off 08/05 per cardiology swelling going down Exam Narrative: Exam Narrative: Blood pressure 134/72 pulse is 82 afebrile >1000 ml output last 2 days Pupil equal reactive to light sclera anicteric Lungs clear today CV faint systolic murmur lower left sternal border Abdomen is soft nontender Extremities 2+ edema still legs, distal pulses are 1+ , edema arms definitely down Neuro alert no focal deficits Objective Data Vital Signs Vital Signs: Vital Signs - 24 hr 08/06/19 21:48 08/07/19 05:46 08/07/19 08:00 Temperature 36.2 C L 36.2 C L Pulse Rate 82 80 80 Respiratory Rate 18 20 20 Blood Pressure 117/57 L 148/81 H Pulse Oximetry 93 95 95 08/07/19 14:00 Temperature 36.1 C L Pulse Rate 83 Respiratory Rate 18 Blood Pressure 134/73 Pulse Oximetry 93 Intake/Output Intake/Output: Intake & Output 08/04/19 08/05/19 08/06/19 08/07/19 23:59 23:59 23:59 23:59 Intake Total 1720 2450 1730 900 Output Total 1850 3750 2650 1050 Balance -130 -1300 -920 -150 Meds/Results Medications: Active Medications Generic Name Dose Route Start Last Admin Trade Name Freq PRN Reason Stop Dose Admin Acetaminophen 650 mg 07/31/19 23:13 08/04/19 17:36 Tylenol Tablet PO 650 mg Q4H PRN Administration Mild Pain (1-3) or Fever Hydrocodone Bitart/Acetaminophen 1 tab 07/31/19 23:13 [place] 5-325 Mg PO Q4H PRN Pain Rated 4-6 Aspirin 81 mg 08/01/19 09:00 08/07/19 08:11 Aspirin Ec PO 81 mg DAILY ANNITA Administration Enoxaparin Sod
--- NOTE | 2019-08-07 15:11 | PCCCNOTE ---
On 08/07/19, the student, [Mary Rios ], provided care and [facility]. I have reviewed the student's documentation and agree with the findings.
--- NOTE | 2019-08-07 17:46 | PM.PNCARD ---
Progress Note: A&P Assessment and Plan (1) Acute on chronic systolic heart failure: Code(s): I50.23 - Acute on chronic systolic (congestive) heart failure Status: Acute Assessment and Plan: He presented with slowly accumulating 50-60 lb weight gain and acute on chronic systolic heart failure. In the past Dr Das did not increase his metoprolol because of bradycardia in did not add an ARB, Entresto or spironolactone because of is chronic kidney disease. -Continue Hydralazine and Isordil. Continue Metoprolol succinate 100 mg daily. -Continue IV diuretics t.i.d. -continue metolazone at 5 mg daily. Is only 920 cc negative from yesterday. -continue fluid restriction -Daily BMP. Recheck magnesium in the morning Will re-approache the thought of ICD implant at a later date. (2) Cardiomyopathy: Qualifiers: Cardiomyopathy type: dilated Qualified Code(s): I42.0 - Dilated cardiomyopathy Code(s): I42.9 - Cardiomyopathy, unspecified Status: Acute Assessment and Plan: EF about 25% since 2017 (3) Chronic renal failure, stage 3 (moderate): Code(s): N18.3 - Chronic kidney disease, stage 3 (moderate) Status: Acute Assessment and Plan: Relatively stable Nephrology following. Appreciate input (4) Hypertension: Qualifiers: Hypertension type: essential hypertension Qualified Code(s): I10 - Essential (primary) hypertension Code(s): I10 - Essential (primary) hypertension Status: Acute Assessment and Plan: Blood pressure improving (5) PVCs (premature ventricular contractions): Code(s): I49.3 - Ventricular premature depolarization Status: Acute Assessment and Plan: Asymptomatic PVCs (6) Knowledge deficit: Status: Acute Assessment and Plan: Reviewed CHF, cardiomyopathy, and encourage the him to call sooner if there is weight gain or swelling. Discharge instructions will include daily weights with instruction to call the office if gain more than 3 lb in 2 days or 5 lb in 1 week. (7) Pulmonary hypertension: Code(s): I27.20 - Pulmonary hypertension, unspecified Status: Acute Assessment and Plan: He has severe pulmonary hypertension. Apnea link done 08/02/2019: AHI= 46.8 Will need formal sleep study as an outpatient Additional Plan Plan discussed Dr. Stanley [id number] 08/07/2019 Subjective Date/time seen: 08/07/19 17:46 Interval history: Follow-up for: Acute on chronic systolic heart failure, nonischemic cardiomyopathy, hypertension, chronic kidney disease stage 3, PVCs. Date of service: 08/07/2019 Subjective: Doing somewhat better. No chest discomfort. Short of breath with exertional activity. Still feels that he has chest congestion. Wheezing at times. No lightheadedness. He thinks his swelling is better. Review of Systems Constitutional: Constitutional: Denies difficulty sleeping, Denies fatigue, Denies fever(s), Denies frequent falls and Reports lethargy Eyes: Eyes: Denies blurry vision ENT: Reports Normal hearing present and Denies epistaxis Cardiovascular: Cardiovascular: Denies chest pain, Denies chest pain with activity, Denies syncope, Denies rapid heart rate, Reports pedal edema, Denies edema, Reports leg edema, Denies lightheadedness, Denies palpitations, Denies dyspnea, Reports dyspnea on exertion and Denies orthopnea Respiratory: Respiratory: Reports chest congestion, Denies dyspnea, Reports dyspnea on exertion and Reports wheezing Gastrointestinal: Gastrointestinal: Denies abdominal pain, Denies hematochezia and Denies hematemesis Genitourinary: Genitourinary: Denies hematuria and Reports urinary frequency Musculoskeletal: Musculoskeletal: Denies back pain and Denies arthralgias Integumentary
[2019-08-07 20:00] VITALS: PULSE 83; RESP 18; O2SAT 93
[2019-08-07 22:13] VITALS: BP 137/72; PULSE 85; RESP 18; TEMP 36.3; O2SAT 92
[2019-08-08] VITALS (7 sets, daily range): BP systolic 146–159; BP diastolic 74–83; PULSE 82–86; RESP 16–20; TEMP 36.3–37; O2SAT 94–95; BMI 33.3
[2019-08-08 05:51] LABS: Albumin Level 3.2 g/dL (3.5-5.1); Blood Urea Nitrogen 54 mg/dL (9-20); Calcium 8.9 mg/dL (8.4-10.2); Carbon Dioxide 26 mmol/L (22-30); Chloride 104 mmol/L (98-107); Estimated CRCL calculation 32 ml/min; Estimated Glomerular Filt Rate 35; Glucose 147 mg/dL (75-110); Magnesium 1.8 mg/dL (1.6-2.3); Phosphorus 3.5 mg/dL (2.5-4.5); Potassium 3.6 mmol/L (3.4-5.0); Sodium 140 mmol/L (137-145)
[2019-08-08] MEDS: ASPIRIN 81 MG ENTERIC TABLET PO (08:56)
[2019-08-08] MEDS: FINASTERIDE 5 MG TABLET PO (08:57)
[2019-08-08] MEDS: FUROSEMIDE INJ 100 MG/10 ML VIAL 80 MG IV PUSH ×3 (08:57→18:06)
[2019-08-08] MEDS: ENOXAPARIN 40 MG/0.4 ML SYRINGE SUB-Q (08:57)
[2019-08-08] MEDS: ISOSORBIDE MONONITRATE 60 MG TAB.ER.24H PO (08:58)
[2019-08-08] MEDS: hydrALAZINE HCL 50 MG TABLET PO ×3 (08:58→18:05)
[2019-08-08] MEDS: METOPROLOL SUCCINATE EXT REL 100 MG TABCR PO (08:59)
[2019-08-08] MEDS: metOLazone 5 MG TABLET PO (08:59)
[2019-08-08] MEDS: SERTRALINE HCL 50 MG TABLET PO (08:59)
--- NOTE | 2019-08-08 10:25 | PM.PNNEP ---
Progress Note: A&P Assessment and Plan (1) Chronic kidney disease, stage 3: Code(s): N18.3 - Chronic kidney disease, stage 3 (moderate) Status: Chronic Assessment and Plan: Creatinine seems to be wandering about his baseline of 2 Tolerating diuresis (2) Nephrotic range proteinuria: Code(s): R80.9 - Proteinuria, unspecified Status: Chronic Assessment and Plan: long standing issue from review of outpatient records (has fluctuated ~ 5 - 7 grams) Due to diabetes Contributing to the edema. (3) Anasarca: Code(s): R60.1 - Generalized edema Status: Acute Assessment and Plan: significant deterioration noted Multiple reasons for his swelling. He has pulmonary hypertension. He also has tricuspid regurgitation. He also may have sleep apnea. And further he has LV dysfunction. Which of these are the carts and which are the horses is difficult to tease out in this situation. The patient also has nephrotic range proteinuria which could certainly contribute to the swelling as well. He is currently on Lasix 80 IV 3 times a day. Metolazone is on board. (4) Acute on chronic systolic heart failure: Code(s): I50.23 - Acute on chronic systolic (congestive) heart failure Status: Acute Assessment and Plan: Cardiology following Continue diuretics (5) Hypertension: Qualifiers: Hypertension type: essential hypertension Qualified Code(s): I10 - Essential (primary) hypertension Code(s): I10 - Essential (primary) hypertension Status: Acute Assessment and Plan: Blood pressure good today. Additional Plan Subjective Date/time seen: 08/08/19 10:25 Interval history: The patient is feeling about the same. His swelling is a little better. Some wrinkles are forming. Review of Systems Cardiovascular: Cardiovascular: Reports no additional cardiovascular complaints Respiratory: Respiratory: Reports no additional respiratory complaints Gastrointestinal: Gastrointestinal: Reports no additional gastrointestinal complaints Genitourinary: Genitourinary: Reports no additional male genitourinary complaints Exam Narrative: Exam Narrative: General: WD/WN male in NAD Heart: normal S1 and S2; no rub or gallop Lungs: decreased with rare crackles at the bases. Abdomen: BS + nontender Extremities: no cyanosis or clubbing; 3+ edema Skin: No rash or subcu nodules Objective Data Vital Signs Vital Signs: Vital Signs - 24 hr 08/07/19 14:00 08/07/19 20:00 08/07/19 22:13 Temperature 36.1 C L 36.3 C L Pulse Rate 83 83 85 Respiratory Rate 18 18 18 Blood Pressure 134/73 137/72 Pulse Oximetry 93 93 92 08/08/19 05:55 08/08/19 08:59 Temperature 36.3 C L Pulse Rate 82 84 Respiratory Rate 16 Blood Pressure 159/80 H Pulse Oximetry 94 Intake/Output Intake/Output: Intake & Output 08/05/19 08/06/19 08/07/19 08/08/19 23:59 23:59 23:59 23:59 Intake Total 2450 1730 1500 540 Output Total 3750 2650 2350 700 Balance -1300 -920 -850 -160 Meds/Results Medications: Active Medications Generic Name Dose Route Start Last Admin Trade Name Freq PRN Reason Stop Dose Admin Acetaminophen 650 mg 07/31/19 23:13 08/04/19 17:36 Tylenol Tablet PO 650 mg Q4H PRN Administration Mild Pain (1-3) or Fever Hydrocodone Bitart/Acetaminophen 1 tab 07/31/19 23:13 [place] 5-325 Mg PO Q4H PRN Pain Rated 4-6 Aspirin 81 mg 08/01/19 09:00 08/08/19 08:56 Aspirin Ec PO 81 mg DAILY ANNITA Administration Enoxaparin Sodium 40 mg 08/01/19 09:00 08/08/19 08:57 Lovenox SUB-Q 40 mg DAILY ANNITA Administration Finasteride 5 mg 08/01/19 09:00 08/08/19 08:57 Proscar PO 5 mg DAILY ANNITA Administration Furosemide 80 mg 08/05/19 09:00 08/08/19 08:57 Lasix Inj IV PUSH 80 mg TID ANNITA Administration Hydralazine HCl 50 mg 08/06/19 13:00 08/08/19 08:58
--- NOTE | 2019-08-08 12:33 | PM.PNCARD ---
Progress Note: A&P Assessment and Plan (1) Acute on chronic systolic heart failure: Code(s): I50.23 - Acute on chronic systolic (congestive) heart failure Status: Acute Assessment and Plan: He presented with slowly accumulating 50-60 lb weight gain and acute on chronic systolic heart failure. In the past Dr Das did not increase his metoprolol because of bradycardia in did not add an ARB, Entresto or spironolactone because of is chronic kidney disease. -Continue Hydralazine and Isordil. Continue Metoprolol succinate 100 mg daily. -Continue IV diuretics t.i.d. -continue metolazone at 5 mg daily. Is only 850 cc negative from yesterday. -supplement potassium -continue fluid restriction -Daily BMP. Recheck magnesium in the morning Will re-approache the thought of ICD implant at a later date. (2) Cardiomyopathy: Qualifiers: Cardiomyopathy type: dilated Qualified Code(s): I42.0 - Dilated cardiomyopathy Code(s): I42.9 - Cardiomyopathy, unspecified Status: Acute Assessment and Plan: EF about 25% since 2017 (3) Chronic renal failure, stage 3 (moderate): Code(s): N18.3 - Chronic kidney disease, stage 3 (moderate) Status: Acute Assessment and Plan: Relatively stable Nephrology following. Appreciate input (4) Hypertension: Qualifiers: Hypertension type: essential hypertension Qualified Code(s): I10 - Essential (primary) hypertension Code(s): I10 - Essential (primary) hypertension Status: Acute Assessment and Plan: Blood pressure elevated at times. Will continue to monitor. May need adjustments in his hydralazine. (5) PVCs (premature ventricular contractions): Code(s): I49.3 - Ventricular premature depolarization Status: Acute Assessment and Plan: Asymptomatic PVCs (6) Knowledge deficit: Status: Acute Assessment and Plan: Reviewed CHF, cardiomyopathy, and encourage the him to call sooner if there is weight gain or swelling. Discharge instructions will include daily weights with instruction to call the office if gain more than 3 lb in 2 days or 5 lb in 1 week. (7) Pulmonary hypertension: Code(s): I27.20 - Pulmonary hypertension, unspecified Status: Acute Assessment and Plan: He has severe pulmonary hypertension. Apnea link done 08/02/2019: AHI= 46.8 Will need formal sleep study as an outpatient Additional Plan Plan discussed Dr. Hickey 1240 08/08/2019 Subjective Date/time seen: 08/08/19 12:33 Interval history: Follow-up for: Acute on chronic systolic heart failure, nonischemic cardiomyopathy, hypertension, chronic kidney disease stage 3, PVCs. Date of service: 08/08/2019 Subjective: Denied chest discomfort. Shortness of breath with exertional activities relatively unchanged. Thinks his swelling is better. No lightheadedness or palpitations. Out of bed for a few hours this morning and with lunch. In with physical therapy and occupational therapy. Review of Systems Constitutional: Constitutional: Denies difficulty sleeping, Denies fatigue, Denies fever(s), Denies frequent falls and Reports lethargy Eyes: Eyes: Denies blurry vision ENT: Reports Normal hearing present and Denies epistaxis Cardiovascular: Cardiovascular: Denies chest pain, Denies chest pain with activity, Denies syncope, Denies rapid heart rate, Reports edema, Denies lightheadedness, Denies palpitations, Denies dyspnea, Reports dyspnea on exertion and Denies orthopnea Respiratory: Respiratory: Reports chest congestion, Denies dyspnea and Reports dyspnea on exertion Gastrointestinal: Gastrointestinal: Denies abdominal pain, Denies hematochezia and Denies hematemesis Genitourinary: Genitourinary: Denies hematuria Musculoskel
[2019-08-08] MEDS: POTASSIUM CHLORIDE 20 MEQ TABLET 40 MEQ PO (12:43)
[2019-08-08 13:38] LABS: Blood Urea Nitrogen 54 mg/dL (9-20); Calcium 8.8 mg/dL (8.4-10.2); Carbon Dioxide 24 mmol/L (22-30); Chloride 100 mmol/L (98-107); Estimated CRCL calculation 34 ml/min; Estimated Glomerular Filt Rate 37; Glucose 142 mg/dL (75-110); Potassium 3.9 mmol/L (3.4-5.0); Sodium 136 mmol/L (137-145)
--- NOTE | 2019-08-08 14:38 | PCOTNOTE ---
Attempted to see patient for skilled OT, however, patient stated I'm really whooped and asked to be seen tomorrow for therapy. Patient not seen this date for OT, will continue POC tomorrow, 08/09/19.
--- NOTE | 2019-08-08 15:33 | PC.NURSE ---
On 08/08/19, the student, Poncho Reilly, provided care and completed [facility] documentation on this patient. I have reviewed the student's documentation and agree with the findings.
--- NOTE | 2019-08-08 16:08 | PCNSR ---
On 08/08/19, the student, Sanaz Elias, provided care and completed [facility] documentation on this patient. I have reviewed the student's documentation and agree with the findings.
--- NOTE | 2019-08-08 17:12 | PM.IMPN ---
Progress Note: A&P Assessment and Plan (1) Congestive heart failure: Qualifiers: Heart failure chronicity: acute on chronic Heart failure type: unspecified Qualified Code(s): I50.9 - Heart failure, unspecified Code(s): I50.9 - Heart failure, unspecified Status: Acute Assessment and Plan: acute on chronic systolic heart failure repeat echo EF 25% with pul HTN and diastolic dysfunction.. Not on Marbin inhibitors due to chronic renal failure. Blood pressure is adequate so added low-dose hydralazine with nitrate and continue IV furosemide(now q8H) per cardiology started dobutamine 08/03 to try to increase diuresis and stopped 08/05. Metolazone added 08/04 08/08 diuresed 1370 overnight. (2) Chronic renal failure, stage 3 (moderate): Code(s): N18.3 - Chronic kidney disease, stage 3 (moderate) Status: Acute Assessment and Plan: Creatinine appears close to baseline, continue to monitor with IV Lasix. creatinine 2.0 today nephrotic syndrome too 08/08 1.8 (3) Diabetes: Qualifiers: Diabetes mellitus type: type 2 Diabetes mellitus halfway insulin use: unspecified termination clerk insulin use status Diabetes mellitus complication status: with kidney complications Diabetes mellitus complication detail: with chronic kidney disease Chronic kidney disease stage: stage 3 (moderate) Qualified Code(s): E11.22 - Type 2 diabetes mellitus with diabetic chronic kidney disease; N18.3 - Chronic kidney disease, stage 3 (moderate) Code(s): E11.9 - Type 2 diabetes mellitus without complications Status: Acute Assessment and Plan: Only on low-dose glimepiride which will hold and monitor and use sliding scale if needed BS good FBS remains below 200. (4) Hypertension: Qualifiers: Hypertension type: essential hypertension Qualified Code(s): I10 - Essential (primary) hypertension Code(s): I10 - Essential (primary) hypertension Status: Acute Assessment and Plan: Pressure adequate and titrated hydralazine to 25mg q6 with nitrate and the beta-seven do not want to lower too much to decrease renal perfusion Subjective Date/time seen: 08/08/19 17:12 Interval history: Swelling decreased in legs. CARMONA with any exertion. Appetite good. Denied pain. No gi/gu c/o. No abnl bleeding. Review of Systems Review of Systems: All systems reviewed & are unremarkable except as noted in HPI and below Exam Narrative: Exam Narrative: HEENT: EOMI, PERRL, pharyngeal mucosa pink and intact NECK: No JVD CHEST: Decr BS bases HEART: NL S1/S2, regular, no murmur ABDOMEN: BS+, soft, nontender, no mass, no bruits EXTREMITIES: No cyanosis, 2+ pretibial edema NEUROLOGIC: CN intact and symmetric to inspection. MUSCULOSKELETAL: Tone and strength symmetric. PSYCH: Alert. Oriented to person, place, and time. Objective Data Vital Signs Vital Signs: Vital Signs - 24 hr 08/07/19 20:00 08/07/19 22:13 08/08/19 05:55 Temperature 97.4 F L 97.4 F L Pulse Rate 83 85 82 Respiratory Rate 18 18 16 Blood Pressure 137/72 159/80 H Pulse Oximetry 93 92 94 08/08/19 08:59 08/08/19 09:00 08/08/19 12:51 Temperature Pulse Rate 84 84 Respiratory Rate Blood Pressure 151/80 H 156/83 H Pulse Oximetry 08/08/19 13:42 Temperature 98.6 F Pulse Rate 86 Respiratory Rate 20 Blood Pressure 146/74 H Pulse Oximetry 95 Intake/Output Intake/Output: Intake & Output 08/05/19 08/06/19 08/07/19 08/08/19 23:59 23:59 23:59 23:59 Intake Total 2450 1730 1500 780 Output Total 3750 2650 2350 2150 Balance -1300 -920 -850 -0990 Meds/Results Medications: Active Medications Generic Name Dose Route Start Last Admin Trade Name Ashley PRN Reason Stop Dose Admin Acetaminophen 650 mg 07/31/19 23:13 08/04/19 17:36 Tylenol Tablet PO 650 mg Q4H PRN Administration Mild Pain (1-3) or Fever Hydrocodone Bitart/Acetaminophen 1 tab 07/31/19 23:13 [place] 5-325 Mg
[2019-08-09 06:08] VITALS: BP 158/86; RESP 18; TEMP 37; O2SAT 96
[2019-08-09 08:37] VITALS: PULSE 83
[2019-08-09] MEDS: ISOSORBIDE MONONITRATE 60 MG TAB.ER.24H PO (08:37)
[2019-08-09] MEDS: hydrALAZINE HCL 50 MG TABLET PO ×3 (08:37→16:51)
[2019-08-09] MEDS: SERTRALINE HCL 50 MG TABLET PO (08:37)
[2019-08-09] MEDS: FUROSEMIDE INJ 100 MG/10 ML VIAL 80 MG IV PUSH ×3 (08:37→16:51)
[2019-08-09] MEDS: FINASTERIDE 5 MG TABLET PO (08:37)
[2019-08-09] MEDS: ENOXAPARIN 40 MG/0.4 ML SYRINGE SUB-Q (08:37)
[2019-08-09] MEDS: METOPROLOL SUCCINATE EXT REL 100 MG TABCR PO (08:37)
[2019-08-09] MEDS: ASPIRIN 81 MG ENTERIC TABLET PO (08:37)
[2019-08-09] MEDS: metOLazone 5 MG TABLET PO (08:37)
--- NOTE | 2019-08-09 10:49 | PM.PNCARD ---
Progress Note: A&P Assessment and Plan (1) Acute on chronic systolic heart failure: Code(s): I50.23 - Acute on chronic systolic (congestive) heart failure Status: Acute Assessment and Plan: He presented with slowly accumulating 50-60 lb weight gain and acute on chronic systolic heart failure. In the past Dr Das did not increase his metoprolol because of bradycardia in did not add an ARB, Entresto or spironolactone because of is chronic kidney disease. -Continue Hydralazine and Isordil. Continue Metoprolol succinate 100 mg daily. -Continue IV diuretics t.i.d. -continue metolazone at 5 mg daily. . -supplement potassium -continue fluid restriction -Daily BMP. Will re-approache the thought of ICD implant at a later date. (2) Cardiomyopathy: Qualifiers: Cardiomyopathy type: dilated Qualified Code(s): I42.0 - Dilated cardiomyopathy Code(s): I42.9 - Cardiomyopathy, unspecified Status: Acute Assessment and Plan: EF about 25% since 2017 (3) Chronic renal failure, stage 3 (moderate): Code(s): N18.3 - Chronic kidney disease, stage 3 (moderate) Status: Acute Assessment and Plan: Relatively stable Nephrology following. Appreciate input (4) Hypertension: Qualifiers: Hypertension type: essential hypertension Qualified Code(s): I10 - Essential (primary) hypertension Code(s): I10 - Essential (primary) hypertension Status: Acute Assessment and Plan: Blood pressure elevated at times. Will continue to monitor. May need adjustments in his hydralazine. (5) PVCs (premature ventricular contractions): Code(s): I49.3 - Ventricular premature depolarization Status: Acute Assessment and Plan: Asymptomatic PVCs (6) Knowledge deficit: Status: Acute Assessment and Plan: Reviewed CHF, cardiomyopathy, and encourage the him to call sooner if there is weight gain or swelling. Discharge instructions will include daily weights with instruction to call the office if gain more than 3 lb in 2 days or 5 lb in 1 week. (7) Pulmonary hypertension: Code(s): I27.20 - Pulmonary hypertension, unspecified Status: Acute Assessment and Plan: He has severe pulmonary hypertension. Apnea link done 08/02/2019: AHI= 46.8 Will need formal sleep study as an outpatient Additional Plan Plan discussed Dr. Hickey 1240 08/08/2019 Subjective Date/time seen: 08/09/19 10:49 Interval history: Follow-up for: Acute on chronic systolic heart failure, nonischemic cardiomyopathy, hypertension, chronic kidney disease stage 3, PVCs. Date of service: 08/09/2019 Subjective: Denied chest discomfort. Shortness of breath with exertional activities relatively unchanged. His swelling continues to improve Review of Systems Constitutional: Constitutional: Denies difficulty sleeping, Denies fatigue, Denies fever(s), Denies frequent falls and Reports lethargy Eyes: Eyes: Denies blurry vision ENT: Reports Normal hearing present and Denies epistaxis Cardiovascular: Cardiovascular: Denies chest pain, Denies chest pain with activity, Denies syncope, Denies rapid heart rate, Reports edema, Denies lightheadedness, Denies palpitations, Denies dyspnea, Reports dyspnea on exertion and Denies orthopnea Respiratory: Respiratory: Reports chest congestion, Denies dyspnea and Reports dyspnea on exertion Gastrointestinal: Gastrointestinal: Denies abdominal pain, Denies hematochezia and Denies hematemesis Genitourinary: Genitourinary: Denies hematuria Musculoskeletal: Musculoskeletal: Denies back pain and Denies arthralgias Integumentary/Breasts: Skin/Breast: Denies rash Neurologic: Reports Normal hearing present, Denies confusion, Denies syncope and Denies frequent
[2019-08-09 12:40] VITALS: BP 153/88; PULSE 86
[2019-08-09 13:36] LABS: Blood Urea Nitrogen 52 mg/dL (9-20); Carbon Dioxide 27 mmol/L (22-30); Chloride 99 mmol/L (98-107); Estimated CRCL calculation 33 ml/min; Estimated Glomerular Filt Rate 37; Glucose 151 mg/dL (75-110); Potassium 3.2 mmol/L (3.4-5.0); Sodium 137 mmol/L (137-145)
[2019-08-09 14:00] VITALS: BP 154/82; PULSE 87; RESP 22; TEMP 36.9; O2SAT 97
--- NOTE | 2019-08-09 14:50 | PM.PNNEP ---
Progress Note: A&P Assessment and Plan (1) Chronic kidney disease, stage 3: Code(s): N18.3 - Chronic kidney disease, stage 3 (moderate) Status: Chronic Assessment and Plan: Creatinine seems to be wandering about his baseline of 2 Tolerating diuresis with regards to creatinine. Still making 2-3 L of urine per day (2) Nephrotic range proteinuria: Code(s): R80.9 - Proteinuria, unspecified Status: Chronic Assessment and Plan: long standing issue from review of outpatient records (has fluctuated ~ 5 - 7 grams) Due to diabetes Contributing to the edema. (3) Anasarca: Code(s): R60.1 - Generalized edema Status: Acute Assessment and Plan: significant deterioration noted Multiple reasons for his swelling. He has pulmonary hypertension. He also has tricuspid regurgitation. He also may have sleep apnea. And further he has LV dysfunction. Which of these are the carts and which are the horses is difficult to tease out in this situation. The patient also has nephrotic range proteinuria which could certainly contribute to the swelling as well. He is currently on Lasix 80 IV 3 times a day. Metolazone is on board. Still making pretty good urine. Eventually will have to switch to oral diuretics. (4) Acute on chronic systolic heart failure: Code(s): I50.23 - Acute on chronic systolic (congestive) heart failure Status: Acute Assessment and Plan: Cardiology following Continue diuretics (5) Hypertension: Qualifiers: Hypertension type: essential hypertension Qualified Code(s): I10 - Essential (primary) hypertension Code(s): I10 - Essential (primary) hypertension Status: Acute Assessment and Plan: Blood pressure good today. Additional Plan Subjective Date/time seen: 08/09/19 14:50 Interval history: The patient is feeling about the same. Lying flat in bed without shortness of breath. His swelling is about the same. Still making urine. Review of Systems Cardiovascular: Cardiovascular: Reports no additional cardiovascular complaints Respiratory: Respiratory: Reports no additional respiratory complaints Gastrointestinal: Gastrointestinal: Reports no additional gastrointestinal complaints Genitourinary: Genitourinary: Reports no additional male genitourinary complaints Exam Narrative: Exam Narrative: General: WD/WN male in NAD Heart: normal S1 and S2; no rub Lungs: decreased with rare crackles at the bases. Abdomen: BS + nontender Extremities 3+ edema Skin: No rash Objective Data Vital Signs Vital Signs: Vital Signs - 24 hr 08/08/19 20:00 08/08/19 23:11 08/09/19 06:08 Temperature 36.5 C 37.0 C Pulse Rate 86 83 Respiratory Rate 20 16 18 Blood Pressure 146/80 H 158/86 H Pulse Oximetry 95 94 96 08/09/19 08:37 08/09/19 12:40 08/09/19 14:00 Temperature 36.9 C Pulse Rate 83 86 87 Respiratory Rate 22 H Blood Pressure 153/88 H 154/82 H Pulse Oximetry 97 Intake/Output Intake/Output: Intake & Output 08/06/19 08/07/19 08/08/19 08/09/19 23:59 23:59 23:59 23:59 Intake Total 1730 1500 1320 680 Output Total 2650 2350 2150 1050 [facility] -920 -850 -830 -370 Meds/Results Medications: Active Medications Generic Name Dose Route Start Last Admin Trade Name Freq PRN Reason Stop Dose Admin Acetaminophen 650 mg 07/31/19 23:13 08/04/19 17:36 Tylenol Tablet PO 650 mg Q4H PRN Administration Mild Pain (1-3) or Fever Hydrocodone Bitart/Acetaminophen 1 tab 07/31/19 23:13 [place] 5-325 Mg PO Q4H PRN Pain Rated 4-6 Aspirin 81 mg 08/01/19 09:00 08/09/19 08:37 Aspirin Ec PO 81 mg DAILY ANNITA Administration Enoxaparin Sodium 40 mg 08/01/19 09:00 08/09/19 08:37 Lovenox SUB-Q 40 mg DAILY ANNITA Administration Finasteride 5 mg 08/01/19 09:00 08/09/19 08:37 Proscar PO 5 mg DAILY ANNITA Administra
--- NOTE | 2019-08-09 15:57 | PM.IMPN ---
Progress Note: A&P Assessment and Plan (1) Congestive heart failure: Qualifiers: Heart failure chronicity: acute on chronic Heart failure type: unspecified Qualified Code(s): I50.9 - Heart failure, unspecified Code(s): I50.9 - Heart failure, unspecified Status: Acute Assessment and Plan: acute on chronic systolic heart failure repeat echo EF 25% with pul HTN and diastolic dysfunction.. Not on Marbin inhibitors due to chronic renal failure. Blood pressure is adequate so added low-dose hydralazine with nitrate and continue IV furosemide(now q8H) per cardiology started dobutamine 08/03 to try to increase diuresis and stopped 08/05. Metolazone added 08/04 08/09 continue diuresis, possibly home soon (2) Chronic renal failure, stage 3 (moderate): Code(s): N18.3 - Chronic kidney disease, stage 3 (moderate) Status: Acute Assessment and Plan: Creatinine appears close to baseline, continue to monitor with IV Lasix. creatinine 2.0 today nephrotic syndrome too 08/08 1.8 2.5 1.8 (3) Diabetes: Qualifiers: Diabetes mellitus type: type 2 Diabetes mellitus adjunct faculty for medical terminology insulin use: unspecified [facility] insulin use status Diabetes mellitus complication status: with kidney complications Diabetes mellitus complication detail: with chronic kidney disease Chronic kidney disease stage: stage 3 (moderate) Qualified Code(s): E11.22 - Type 2 diabetes mellitus with diabetic chronic kidney disease; N18.3 - Chronic kidney disease, stage 3 (moderate) Code(s): E11.9 - Type 2 diabetes mellitus without complications Status: Acute Assessment and Plan: Only on low-dose glimepiride which will hold and monitor and use sliding scale if needed BS good FBS remains below 200. (4) Hypertension: Qualifiers: Hypertension type: essential hypertension Qualified Code(s): I10 - Essential (primary) hypertension Code(s): I10 - Essential (primary) hypertension Status: Acute Assessment and Plan: Pressure adequate and titrated hydralazine to 25mg q6 with nitrate and the beta-seven Subjective Date/time seen: 08/09/19 15:57 Interval history: Tolerated diet. Swelling improved. Denied pain. Review of Systems Review of Systems: All systems reviewed & are unremarkable except as noted in HPI and below Exam Narrative: Exam Narrative: HEENT: EOMI, PERRL, pharyngeal mucosa pink and intact NECK: No JVD CHEST: Decr BS bases HEART: NL S1/S2, regular, no murmur ABDOMEN: BS+, soft, nontender, no mass, no bruits EXTREMITIES: No cyanosis, 2+ pretibial edema NEUROLOGIC: CN intact and symmetric to inspection. MUSCULOSKELETAL: Tone and strength symmetric. PSYCH: Alert. Oriented to person, place, and time. Objective Data Vital Signs Vital Signs: Vital Signs - 24 hr 08/08/19 20:00 08/08/19 23:11 08/09/19 06:08 Temperature 97.7 F 98.6 F Pulse Rate 86 83 Respiratory Rate 20 16 18 Blood Pressure 146/80 H 158/86 H Pulse Oximetry 95 94 96 08/09/19 08:37 08/09/19 12:40 08/09/19 14:00 Temperature 98.4 F Pulse Rate 83 86 87 Respiratory Rate 22 H Blood Pressure 153/88 H 154/82 H Pulse Oximetry 97 Intake/Output Intake/Output: Intake & Output 08/06/19 08/07/19 08/08/19 08/09/19 23:59 23:59 23:59 23:59 Intake Total 1730 1500 1320 680 Output Total 2650 2350 2150 1050 [facility] -920 -850 -830 -370 Meds/Results Medications: Active Medications Generic Name Dose Route Start Last Admin Trade Name Freq PRN Reason Stop Dose Admin Acetaminophen 650 mg 07/31/19 23:13 08/04/19 17:36 Tylenol Tablet PO 650 mg Q4H PRN Administration Mild Pain (1-3) or Fever Hydrocodone Bitart/Acetaminophen 1 tab 07/31/19 23:13 [place] 5-325 Mg PO Q4H PRN Pain Rated 4-6 Aspirin 81 mg 08/01/19 09:00 08/09/19 08:37 Aspirin Ec PO 81 mg DAILY ANNITA Administration Enoxaparin Sodium 40 mg 08/01/19 09:00 08/09/19 08:37 Lovenox [facility]
[2019-08-09] MEDS: POTASSIUM CHLORIDE 20 MEQ TABLET 40 MEQ PO (16:50)
[2019-08-09 21:46] VITALS: BP 145/84; PULSE 86; RESP 18; TEMP 36.3; O2SAT 94
[2019-08-10 06:18] VITALS: BP 156/79; PULSE 88; RESP 18; TEMP 36.2; O2SAT 93
[2019-08-10 06:19] LABS: Albumin Level 3.3 g/dL (3.5-5.1); Blood Urea Nitrogen 52 mg/dL (9-20); Calcium 9.1 mg/dL (8.4-10.2); Carbon Dioxide 26 mmol/L (22-30); Chloride 101 mmol/L (98-107); Estimated CRCL calculation 32 ml/min; Estimated Glomerular Filt Rate 35; Glucose 170 mg/dL (75-110); Magnesium 1.7 mg/dL (1.6-2.3); Phosphorus 3.3 mg/dL (2.5-4.5); Potassium 3.3 mmol/L (3.4-5.0); Sodium 140 mmol/L (137-145)
--- NOTE | 2019-08-10 08:45 | PM.PNNEP ---
Progress Note: A&P Assessment and Plan (1) Chronic kidney disease, stage 3: Code(s): N18.3 - Chronic kidney disease, stage 3 (moderate) Status: Chronic Assessment and Plan: Creatinine seems to be wandering about his baseline of 2 Creatinine is stable in spite of negative intake output. (2) Nephrotic range proteinuria: Code(s): R80.9 - Proteinuria, unspecified Status: Chronic Assessment and Plan: long standing issue from review of outpatient records (has fluctuated ~ 5 - 7 grams) Due to diabetes (3) Anasarca: Code(s): R60.1 - Generalized edema Status: Acute Assessment and Plan: significant deterioration noted Multiple reasons for his swelling. He has pulmonary hypertension. He also has tricuspid regurgitation. He also may have sleep apnea. And further he has LV dysfunction. Which of these are the carts and which are the horses is difficult to tease out in this situation. The patient also has nephrotic range proteinuria which could certainly contribute to the swelling as well. He is currently on Lasix 80 IV 3 times a day. Metolazone is on board. Will change Lasix to 80 p.o. b.i.d. and see how he does on oral therapy. (4) Acute on chronic systolic heart failure: Code(s): I50.23 - Acute on chronic systolic (congestive) heart failure Status: Acute Assessment and Plan: Cardiology following Continue diuretics See how he does on p.o. furosemide (5) Hypertension: Qualifiers: Hypertension type: essential hypertension Qualified Code(s): I10 - Essential (primary) hypertension Code(s): I10 - Essential (primary) hypertension Status: Acute Assessment and Plan: Blood pressure is well controlled. Additional Plan Subjective Date/time seen: 08/10/19 08:45 Interval history: The patient is feeling about the same. Sitting up and eating some breakfast. No shortness of breath. Swelling gradually better. Review of Systems Cardiovascular: Cardiovascular: Reports no additional cardiovascular complaints Respiratory: Respiratory: Reports no additional respiratory complaints Gastrointestinal: Gastrointestinal: Reports no additional gastrointestinal complaints Genitourinary: Genitourinary: Reports no additional male genitourinary complaints Exam Narrative: Exam Narrative: General: WD/WN male in NAD Heart: normal S1 and S2; no rub Lungs: decreased with rare crackles at the bases. Abdomen: BS + nontender Extremities 2-3+ edema Skin: No rash or subcu nodules Objective Data Vital Signs Vital Signs: Vital Signs - 24 hr 08/09/19 12:40 08/09/19 14:00 08/09/19 21:46 Temperature 36.9 C 36.3 C L Pulse Rate 86 87 86 Respiratory Rate 22 H 18 Blood Pressure 153/88 H 154/82 H 145/84 H Pulse Oximetry 97 94 08/10/19 06:18 Temperature 36.2 C L Pulse Rate 88 Respiratory Rate 18 Blood Pressure 156/79 H Pulse Oximetry 93 Intake/Output Intake/Output: Intake & Output 08/07/19 08/08/19 08/09/19 08/10/19 23:59 23:59 23:59 23:59 Intake Total 1500 1320 780 Output Total 2350 2150 2250 800 Balance -850 -830 -1470 -800 Meds/Results Medications: Active Medications Generic Name Dose Route Start Last Admin Trade Name Freq PRN Reason Stop Dose Admin Acetaminophen 650 mg 07/31/19 23:13 08/04/19 17:36 Tylenol Tablet PO 650 mg Q4H PRN Administration Mild Pain (1-3) or Fever Hydrocodone Bitart/Acetaminophen 1 tab 07/31/19 23:13 [place] 5-325 Mg PO Q4H PRN Pain Rated 4-6 Aspirin 81 mg 08/01/19 09:00 08/09/19 08:37 Aspirin Ec PO 81 mg DAILY ANNITA Administration Enoxaparin Sodium 40 mg 08/01/19 09:00 08/09/19 08:37 Lovenox SUB-Q 40 mg DAILY ANNITA Administration Finasteride 5 mg 08/01/19 09:00 08/09/19 08:37 Proscar PO 5 mg DAILY ANNITA Administration Furosemide 80 mg 08/05/19 09:00 08/09/19 16:51 L
--- NOTE | 2019-08-10 09:10 | PM.PNCARD ---
Progress Note: A&P Assessment and Plan (1) Acute on chronic systolic heart failure: Code(s): I50.23 - Acute on chronic systolic (congestive) heart failure Status: Acute Assessment and Plan: He presented with slowly accumulating 50-60 lb weight gain and acute on chronic systolic heart failure. In the past Dr Das did not increase his metoprolol because of bradycardia in did not add an ARB, Entresto or spironolactone because of is chronic kidney disease. -Continue Hydralazine and Isordil. Continue Metoprolol succinate 100 mg daily. -transition to oral diuretics -continue metolazone at 5 mg daily. . -supplement potassium -continue fluid restriction Will need basic metabolic panel early next week. Will have follow-up with Dr. Das or our nurse practitioner also within 1 to 2 weeks Will re-approache the thought of ICD implant at a later date. (2) Cardiomyopathy: Qualifiers: Cardiomyopathy type: dilated Qualified Code(s): I42.0 - Dilated cardiomyopathy Code(s): I42.9 - Cardiomyopathy, unspecified Status: Acute Assessment and Plan: EF about 25% since 2017 (3) Chronic renal failure, stage 3 (moderate): Code(s): N18.3 - Chronic kidney disease, stage 3 (moderate) Status: Acute Assessment and Plan: Relatively stable Nephrology following. Appreciate input (4) Hypertension: Qualifiers: Hypertension type: essential hypertension Qualified Code(s): I10 - Essential (primary) hypertension Code(s): I10 - Essential (primary) hypertension Status: Acute Assessment and Plan: Blood pressure elevated at times. Will continue to monitor. May need adjustments in his hydralazine. (5) PVCs (premature ventricular contractions): Code(s): I49.3 - Ventricular premature depolarization Status: Acute Assessment and Plan: Asymptomatic PVCs Extra potassium 40 mg p.o. x1 (6) Knowledge deficit: Status: Acute Assessment and Plan: Reviewed CHF, cardiomyopathy, and encourage the him to call sooner if there is weight gain or swelling. Discharge instructions will include daily weights with instruction to call the office if gain more than 3 lb in 2 days or 5 lb in 1 week. (7) Pulmonary hypertension: Code(s): I27.20 - Pulmonary hypertension, unspecified Status: Acute Assessment and Plan: He has severe pulmonary hypertension. Apnea link done 08/02/2019: AHI= 46.8 Will need formal sleep study as an outpatient Subjective Date/time seen: 08/10/19 09:10 Interval history: Follow-up for: Acute on chronic systolic heart failure, nonischemic cardiomyopathy, hypertension, chronic kidney disease stage 3, PVCs. Date of service: 08/10/2019 Subjective: Still with severe edema but stable. No chest pain. Is able to walk halls without significant difficulty. Review of Systems Constitutional: Constitutional: Denies difficulty sleeping, Denies fatigue, Denies fever(s), Denies frequent falls and Reports lethargy Eyes: Eyes: Denies blurry vision ENT: Reports Normal hearing present and Denies epistaxis Cardiovascular: Cardiovascular: Denies chest pain, Denies chest pain with activity, Denies syncope, Denies rapid heart rate, Reports edema, Denies lightheadedness, Denies palpitations, Denies dyspnea, Reports dyspnea on exertion and Denies orthopnea Respiratory: Respiratory: Reports chest congestion, Denies dyspnea and Reports dyspnea on exertion Gastrointestinal: Gastrointestinal: Denies abdominal pain, Denies hematochezia and Denies hematemesis Genitourinary: Genitourinary: Denies hematuria Musculoskeletal: Musculoskeletal: Denies back pain and Denies arthralgias Integumentary/Breasts: Skin/Breast: Denies rash Neurologic: Reports Bonnie
[2019-08-10] MEDS: ISOSORBIDE MONONITRATE 60 MG TAB.ER.24H PO (09:57)
[2019-08-10] MEDS: metOLazone 5 MG TABLET PO (09:57)
[2019-08-10] MEDS: POTASSIUM CHLORIDE 20 MEQ TABLET.ER 40 MEQ PO (09:57)
[2019-08-10] MEDS: hydrALAZINE HCL 50 MG TABLET PO (09:57)
[2019-08-10] MEDS: FUROSEMIDE 80 MG TABLET PO (09:57)
[2019-08-10 09:58] VITALS: PULSE 88
[2019-08-10] MEDS: ENOXAPARIN 40 MG/0.4 ML SYRINGE SUB-Q (09:58)
[2019-08-10] MEDS: METOPROLOL SUCCINATE EXT REL 100 MG TABCR PO (09:58)
[2019-08-10] MEDS: ASPIRIN 81 MG ENTERIC TABLET PO (09:58)
[2019-08-10] MEDS: FINASTERIDE 5 MG TABLET PO (09:58)
[2019-08-10] MEDS: SERTRALINE HCL 50 MG TABLET PO (09:58)
--- NOTE | 2019-08-10 11:12 | PM.DS ---
DS: Diagnosis Admitting Diagnosis Admitting Diagnosis: Heart failure, unspecified Discharge Diagnosis (1) Congestive heart failure: Qualifiers: Heart failure chronicity: acute on chronic Heart failure type: unspecified Qualified Code(s): I50.9 - Heart failure, unspecified Code(s): I50.9 - Heart failure, unspecified Status: Acute Assessment and Plan: acute on chronic systolic heart failure repeat echo EF 25% with pul HTN and diastolic dysfunction.. Not on Marbin inhibitors due to chronic renal failure. Blood pressure is adequate so added low-dose hydralazine with nitrate and continue IV furosemide(now q8H) per cardiology started dobutamine 08/03 to try to increase diuresis and stopped 08/05. Metolazone added 08/04 08/09 continue diuresis 08/10 PO diuretics. Home (2) Chronic renal failure, stage 3 (moderate): Code(s): N18.3 - Chronic kidney disease, stage 3 (moderate) Status: Acute Assessment and Plan: Creatinine appears close to baseline, continue to monitor with IV Lasix. creatinine 2.0 today nephrotic syndrome too 08/08 1.8 2.5 1.8 (3) Diabetes: Qualifiers: Chronic kidney disease stage: stage 3 (moderate) Diabetes mellitus complication detail: with chronic kidney disease Diabetes mellitus complication status: with kidney complications Diabetes mellitus master planner insulin use: unspecified master planner insulin use status Diabetes mellitus type: type 2 Qualified Code(s): E11.22 - Type 2 diabetes mellitus with diabetic chronic kidney disease; N18.3 - Chronic kidney disease, stage 3 (moderate) Code(s): E11.9 - Type 2 diabetes mellitus without complications Status: Acute Assessment and Plan: Only on low-dose glimepiride which will hold and monitor and use sliding scale if needed BS good FBS remains below 200. (4) Hypertension: Qualifiers: Hypertension type: essential hypertension Qualified Code(s): I10 - Essential (primary) hypertension Code(s): I10 - Essential (primary) hypertension Status: Acute Assessment and Plan: Pressure adequate and titrated hydralazine to 25mg q6 with nitrate and the beta-seven DS: Summary Hospital Course Reason for hospitalization: Swelling and dyspnea Hospital Course: Presented emergency department with increased swelling and dyspnea about a 50 lb weight gain over several weeks. No history of nephrosis and chronic diastolic congestive heart failure. Was diuresed with IV furosemide 80 mg 3 times a day as well as metolazone 5 mg daily. Antihypertensives were adjusted to doses as noted in discharge medications. Creatinine remained her baseline. He was tolerating his diet. At his baseline functional status. Had no chest pain nausea vomiting abdominal pain fevers chills sweats cough or abnormal bleeding. Status at Discharge Functional status at discharge: uses cane/walker Time Spent with Patient Time attestation: Total time spent providing and/or coordinating discharge services:35 min Time spent: Greater than 30 minutes Exam Narrative: Exam Narrative: HEENT: EOMI, PERRL, pharyngeal mucosa pink and intact NECK: No JVD CHEST: Decr BS bases HEART: NL S1/S2, regular, no murmur ABDOMEN: BS+, soft, nontender, no mass, no bruits EXTREMITIES: No cyanosis, 2+ pretibial edema NEUROLOGIC: CN intact and symmetric to inspection. MUSCULOSKELETAL: Tone and strength symmetric. PSYCH: Alert. Oriented to person, place, and time. DS: Data Data Completed and Pending Labs on day of discharge: Labs from last 24 hours 08/10/19 08/09/19 05:15 12:59 Sodium 140 137 Potassium 3.3 L 3.2 L Chloride 101 99 Carbon Dioxide 26 27 BUN 52 H 52 H Creatinine 1.90 H 1.80 H Estim Creat Clear Calc 32 33 Estimated GFR 35 L 37 L Glucose 170 H 151 H Calcium 9.1 9.0 Phosphorus 3.3 Magnesium 1.7 Albumin 3.3 L Discharge Plan Discharge Attending physician on discharge: Leonard Falk
--- NOTE | 2019-08-10 11:32 | PCPTNOTE ---
Patient refused treatment this session due to anticipated discharge.
== END 2019-08-10 14:20 | disposition home health service (06) | DRG 291 ==
LOC: ANHED 22:52 → ANHIMU 23:24 → ANH2MED 08-07 09:49 → ANH3MEDSUR 08-14 09:17 → ANHIMU 08-14 09:17
PROVIDERS: Internal Medicine; Internal Medicine Nephrology; Nurse Practitioner Adult Health; Admitting Provider Internal Medicine; Emergency Provider Emergency Medicine; PCP Family Medicine Adolescent Medicine; Visit Provider Internal Medicine
DX: I13.0 Hypertensive heart and chronic kidney disease with heart failure and stage 1 through stage 4 chronic kidney disease, or unspecified chronic kidney disease (principal); I50.23 Acute on chronic systolic (congestive) heart failure; M87.9 Osteonecrosis, unspecified; N04.9 Nephrotic syndrome with unspecified morphologic changes; E11.22 Type 2 diabetes mellitus with diabetic chronic kidney disease; N18.3 Chronic kidney disease, stage 3 (moderate); Z87.442 Personal history of urinary calculi; R33.9 Retention of urine, unspecified; E78.00 Pure hypercholesterolemia, unspecified; F32.9 Major depressive disorder, single episode, unspecified; Z79.84 Long term (current) use of oral hypoglycemic drugs; I50.9 Heart failure, unspecified; I27.20 Pulmonary hypertension, unspecified; M16.10 Unilateral primary osteoarthritis, unspecified hip; J45.909 Unspecified asthma, uncomplicated; N40.0 Benign prostatic hyperplasia without lower urinary tract symptoms; H26.9 Unspecified cataract; Z87.440 Personal history of urinary (tract) infections; I49.3 Ventricular premature depolarization; I42.0 Dilated cardiomyopathy; I07.1 Rheumatic tricuspid insufficiency
CPT/HCPCS: 36415; 71046; 76775; 80048; 80069; 80076; 81001; 81050; 82570; 83735; 83880; 84156; 84443; 84484; 85025; 85610; 85730; 87086; 87088; 93005; 93306; 94762; 96374; 96376; 97110; 97116; 97161; 97165; 97530; 99285; A9270; G0378; J1250; J1650; J1940